=== PATIENT | female | born 1990 ===

== ENCOUNTER 2024-05-11 16:14 | Emergency (ER) | payer BC, SELFPAY ==
--- OUTSIDE RECORDS SUMMARY | 2024-05-11 16:17 | XMS_ITS ---
Author Organization [facility] Address [address] [place] [address] Care Team Providers Care Bed Placement Coordinator Name Role Phone Ángel Pham Primary Care Provider [phone] REASON FOR VISIT Est Primary Social History Sex Assigned At : Social History Observation Description Sex Assigned At Female Encounters Encounter Location Date Provider Diagnosis [address] [address] 02/10/2024 Ángel Pham Plan Of Treatment No Information Progress Notes * Peggy FRANKMarlysB:1990 ( 33 yo F)Acc No.[id number]:02/10/2024 UNLOCKED PROGRESS NOTE Progress Notes Patient: Trupti COPE Provider: GERALDO Shaikh, AGPCNP-BC :1990 A ge:33 Y S ex:Female Date:02/10/2024 Address:[address] [place], [place] [id number] Subjective: * Chief Complaints: * 1 . Est Primary. * Medical History: Objective: * Vitals: Assessment: Plan: * Treatment: * * Electronic signature of John Pham APRN, [phone] on 05/11/2024 at 04:16 PM TECHNICAL SALES SUPPORT SPECIALIST Sign off status: Pending * Provider: GERALDO Shaikh, AGPCNP-BC Date: 1 04/12/2023 Generated for Printing/Faxing/eTransmitting on: 0 05/11/2024 04:16 PM TECHNICAL SALES SUPPORT SPECIALIST
--- OUTSIDE RECORDS SUMMARY | 2024-05-11 16:17 | XMS_ITS | Clinical Summary ---
Author Organization [facility] Address [facility] [place] [address] Care Team Providers Care Field Cashier Name Role Phone Unavailable Primary Care Provider Unavailabl e Social History Tobacco Use Types Packs/Day Years Used Date Smoking Tobacco: Never Assessed Comments Unknown Sex and Gender Information Value Date Recorded Sex Assigned at Not on file Legal Sex Female 8:20 PM CDT Gender Identity Not on file Sexual Orientation Not on file Plan of Treatment Health Maintenance Due Date Last Done Comments Cervical Cancer Screening Pa p Smear (Age 30 to 64) Every 3 Years 1988 Annual Physical 08/31/1991 Hepatitis C 2006 DTaP, Tdap and Td Vaccines ( 1 - Tdap) 08/31/2007 Hepatitis B Vaccines (1 of 3 - 19+ 3-dose series) 08/31/2007 Cervical Cancer Screening Pa p with HPV Testing (Age 30 to 64) Every 5 Years 2018 Cervical Cancer Screening with HPV 2018 COVID-19 Vaccine (2023-2 5 season) 2023 Influenza Adult (#1) 2023 HPV Vaccines Aged Out No longer eligi ble based on patient's age to complete this topic Meningococcal B Vaccine Aged Out No l onger eligible based on patient's age to complete this topic Meningococcal Vaccine Aged Out No dillon lorie eligible based on patient's age to complete this topic Pneumococcal Vaccine: Pediat rics (0 to 5 Years) and At-Risk Patients (6 to 64 Years) Aged Out No longer eligible b ased on patient's age to complete this topic RSV Immunizations Under 20 Months Aged Out No longer eligible based on patient's age to complete this topic Advance Directives Documents on File Type Date 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
--- OUTSIDE RECORDS SUMMARY | 2024-05-11 16:17 | XMS_ITS ---
Author Organization [facility] Address [address] [place] [address] Care Team Providers Care Cane Splicer Name Role Phone Ángel Pham Primary Care Provider [phone] Asuncion Holm [phone] Allergies Allergen (clinical drug ingredient) Drug/Non Drug Allergy documented on EMR Reaction Allergy Type Onset Date Status Motrin hives Drug Allergy Active REASON FOR VISIT Walk-In Medications Medication SIG (Take, Route, Frequency, Duration) Notes Start Date End Date Status Buprenorphine HCl-Naloxone HCl 8-2 MG 1 film under the tongue and allow to dissolve Sublingual Once a day for 15 days 03/05/2024 Active Buprenorphine HCl-Naloxone HCl 12-3 MG 1 film under the tongue and allow to dissolve Sublingual Twice a day for 15 days 03/05/2024 Active Narcan 4 MG/0.1ML as directed Nasally FOR OPIOID OVERDOSE 09/20/2023 Active Docusate Sodium 100 MG 1 capsule as needed Orally Once a day for 30 days As needed for constipation 10/04/2023 Active Naloxone HCl 4 MG/0.1ML as directed Nasally FOR OPIOID OVERDOSE 11/21/2023 Active Social History Tobacco Use: Social History Observation Description Date Details (start date - stop date) Current Smoker NA - NA Sex Assigned At : Social History Observation Description Sex Assigned At Female Tobacco Control (Standard) Question Answer Notes Tobacco use: Current smoker Vital Signs Weight 208.2 lbs 03/05/2024 Height 65 in 03/05/2024 BMI 34.64 kg/m2 03/05/2024 Blood pressure systolic 126 mm Hg 03/05/20 24 Blood pressure diastolic 78 mm Hg 024 Heart Rate 126 /min 03/05/2024 Oximetry 98 % 03/05/2024 Temperature 98.6 degrees Fahrenheit 03/05/20 24 Respiratory Rate 16 /min 03/05/2024 Encounters Encounter Location Date Provider Diagnosis [facility] [place] [address] 03/05/2024 Asuncion Holm Opioid use disorder F11.99 Assessments Encounter Date Diagnosis (ICD Code) Assessment Notes Treatment Notes Treatment Clinical Notes Section Notes 03/05/2024 Opioid use disorder (ICD-10 - F11.99) 03/05/2024 Other Discussed risks of illicit substances and encouraged non-use. Discussed precipitated opioid withdrawal and how to avoid. Patient agrees to take medication as prescribed. Discussed medication side effects, adverse effects, risks, benefits, as well as interactions. Encouraged non-use of opioids and other illicit substances. Has naloxone. Discontinuing buprenorphine increases the risk of overdose upon return to illicit opioid use. Use of alcohol or benzodiazepines with buprenorphine increases the risk of overdose and . Education provided about safe storage of medications. Encouraged participation in recovery groups/counseling services. Contact office with questions or concerns. Plan Of Treatment Medication Medication Name Sig Start Date Stop Date Notes Buprenorphine HCl-Naloxone H Cl 8-2 MG 1 film under the tongue and allow to dissolve Sublingual Once a day for 15 days 03/05/2024 Buprenorphine HCl-Naloxone H Cl 12-3 MG 1 film under the tongue and allow to dissolve Sublingual Twice a day for 15 days 03/05/2024 Treatment Notes Assessment Notes Other Discussed risks of illicit substances and encouraged non-use. Discussed precipitated opioid withdrawal and how to avoid. Patient agrees to take medication as prescribed. Discussed medication side effects, adverse effects, risks, benefits, as well as interactions. Encouraged non-use of opioids and other illicit substances. Has naloxone. Discontinuing buprenorphine increases the risk of overdose upon return to illicit opioid use. Use of alcohol or benzodiazepines with buprenorphine increases the risk of overdose and . Education provided about safe storage of medications. Encouraged participation in recovery groups/counseling services. Contact office with questions or concerns. Next Appt Details Follow Up: 2 Weeks, Reason: MAR f/u Progress Notes * Helio FRANK:1990 ( 33 yo F)Acc No.[id number]:03/05/2024 Patient: Liliana Trupti ROMERO Provider: Logan Holm, MSN, EYEGLASS LENS GENERATOR, PMHNP-BC :1990 A ge:33 Y S ex:Female Date:03/05/2024 [address] [place] [address] Pcp:Ángel Pham Check In:01:06 PM ECONOMIC DEVELOPMENT COORDINATOR Subjective: * Chief Complaints: * W alk-In * HPI: P reventative Health and Wellness follow-up: Action Plans for Clinical Quality Measures: C ervical Cancer Screening: N ot addressed during this visit. See notes for details., H IV Screening: N ot addressed during this visit. See notes for details.. . I nterim History: Emergency room visit N o. W as hospitalized N o.? D epression Screening: PHQ-9 L ittle interest or pleasure in doing things N ot at all, F eeling down, depressed, or hopeless N ot at all, T rouble falling or staying asleep, or sleeping too much N ot at all, F eeling tired or having little energy N ot at all, P oor appetite or overeating N ot at all, F eeling bad about yourself or that you are a failure, or have let yourself or your family down N ot at all, T rouble concentrating on things, such as reading the newspaper or watching television N ot at all, M oving or speaking so slowly that other people could have noticed; or the opposite, being so fidgety or restless that you have been moving around a lot more than usual N ot at all, T houghts that you would be better off or of hurting yourself in some way N ot at all, T otal Score 0 . C SSRS Interpretation and Follow Up Plan: CSSRS Interpretation and Follow Up Plan. CSSRS Interpretation and Follow Up Plan C SSRS Screen documented using SF Y es, M oderate or High risk requires selection of a follow up plan C SSRS No/Low: intervention not needed at this time, R isk Disposition from SF L ow - No Follow Up Plan Required. S creening: [place] Suicide Severity Rating Scale (LF) D o you want to initiate with S creener form, 1 . Wish to be : Have you wished you were or wished you could go to sleep and not wake up? N o, 2 . Suicidal Thoughts: Have you actually had any thoughts of killing yourself? N o, 6 . Suicide Behaviour: Have you ever done anything,started to do anything, or prepared to end your life? N o, I nterpretation: L ow Risk. M AR follow-up: MAR walk-in, 4 week f/u Tolerating current dose of buprenorphine. Using meth couple days per week (smokes) Admits to recent fentanyl setback. Reports using once due to being around wrong crowd. Motivated to remain in treatment. Medication Monitoring and Risk Mitigation U p-to-date on ASAM recommended lab testing? N o, P rescribed a buprenorphine product? Y es, H as patient had a buprenorphine and metabolite lab ordered/collected? Y es (see notes for date of last metabolite testing), D ate of last buprenorphine and metabolite 0 11/21/2023, P rescription Drug Monitoring Program Review Y es. No concerns at this time., P cici to address any concerns identified: I n-office visits required at this time.. C ravings, Setbacks, Substance use, and Stressors C ravings since last visit: Y es. See notes., S etbacks since last visit? Y es. See notes., M isuse of substances since last visit: Y es, patient admits. See notes., S tressors N o, patient denies stressors at this time.. W ithdrawal and Intoxication Symptoms I ntoxication Symptoms: N o signs of intoxication are present during visit.,?Withdrawal Symptoms: N o withdrawal signs are present during visit.. M ental Health, Support System, and Social Determinants M ental Health Status S table., S upport Systems Include: P ersonal support system (see notes)., C ourt System Involvement? N o, H ousing Stability: S table and safe housing., C urrently employed? U nemployed., R eferrals needed: Rod khan recommended the following referrals, but the patient declined:, R eferrals declined for: R ecovery meetings/recovery support peer, Psychiatric care services. R ecommended Wellness and Prevention Follow-up R ecommended Wellness and Prevention reviewed: R ecommended Wellness and Prevention not reviewed during this visit (see notes):. O ther concerns: Other Concerns? N o., N arcan need Y es. Prescription will be sent today. Re-educated on appropriate use of Narcan.. * ROS: B asic ROS: Denies C hills. D enies S weats. D enies C onstipation. A dmits S ubstance Abuse. D enies S uicidal Thoughts. * Medical History: * Surgical History: r ight hand fasciotomy s/t compartment syndrome 2022 * Hospitalization/Major Diagno stic Procedure: c hildbirth x3 * Family History: F ather: alive. M other: alive. 1 brother(s) - healthy. 1 son(s) , 2 daughter(s) - healthy. . * Social History: P rimary Social History: L iving Arrangement L iving Arrangement: D ependent Living, L iving with: P arent(s), I s this a supportive environment? Y es. A lcohol Use A lcohol Use Frequency: N ever. I llicit Substance Usage I llicit Substance Usage: Y es. E mployment Status E mployment Status: U nemployed. T obacco Use: T obacco Control (Standard) T obacco use: C urrent smoker. M iscellaneous: M ethod of learning P referred method of learning: Penny berg. * Medications: T akingBuprenorphine HCl-Naloxone HCl 8-2 MG Film 1 film under the tongue and allow to dissolve Sublingual Once a day Buprenorphine HCl-Naloxone HCl 12-3 MG Film 1 film under the tongue and allow to dissolve Sublingual Twice a day Naloxone HCl 4 MG/0.1ML Liquid as directed Nasally FOR OPIOID OVERDOSEDocusate Sodium 100 MG Capsule 1 capsule as needed Orally Once a day As needed for constipationNarcan 4 MG/0.1ML Liquid as directed Nasally FOR OPIOID OVERDOSEMedication List reviewed and reconciled with the patientTaking Buprenorphine HCl-Naloxone HCl 8-2 MG Film 1 film under the tongue and allow to dissolve Sublingual Once a day Taking Buprenorphine HCl- Naloxone HCl 12-3 MG Film 1 film under the tongue and allow to dissolve Sublingual Twice a day Taking Naloxone HCl 4 MG/0.1ML Liquid as directed Nasally FOR OPIOID OVERDOSETaking Docusate Sodium 100 MG Capsule 1 capsule as needed Orally Once a day As needed for constipationTaking Narcan 4 MG/0.1ML Liquid as directed Nasally FOR OPIOID OVERDOSEMedication List reviewed and reconciled with the patient * Allergies: M otrin: christoph[Allergies Verified] Objective: * Vitals: I nitials: rt, Wt:208.2, Ht: 65, BMI:34.64, BP:126/78, HR:126, Oxygen sat %:98, Temp:98.6, RR:16, LMP: 02/2024, Pain scale:0. * Examination: A VIKASH Physical Assessment: Intoxication and Withdrawal signs I ntoxication signs N o signs of intoxication are present during examination.Withdrawal Signs N o withdrawal signs are present during examination.. G eneral Examination: GENERAL APPEARANCE: a lert, pleasant, in no acute distress.? PSYCH: a lert, oriented x4, speech clear, good eye contact.? Assessment: * Assessment: 1. O pioid use disorder - F11.99 (Primary) Plan: * Treatment: Value Reference Range T HC POS * C OC neg * M OP (OPI) POS * A MP POS * M ET POS * B AR neg * B ZO POS * M DMA POS * M TD neg * O XY neg * P CP neg * B UP POS 2.?Others? Notes:Discussed risks of illicit substances and encouraged non-use. Discussed precipitated opioid withdrawal and how to avoid. Patient agrees to take medication as prescribed. Discussedmedication side effects, adverse effects,risks, benefits, as well asinteractions. Encouraged non-use of opioids and other illicit substances. Hasnaloxone. Discontinuing buprenorphine increases the risk of overdose uponreturn to illicit opioid use. Use of alcohol or benzodiazepines withbuprenorphine increases the risk of overdose anddeath. Education providedabout safe storage of medications. Encouragedparticipation in recovery groups/counseling services. Contact office withquestions or concerns. ?? * Recommended Wellness and Pre vention Guidelines: * S hannah A malena L ast Done N ext Due A ction Taken N ONCOMPLIANT A lcohol use screening - 1 - N ONCOMPLIANT C ervical cancer screening - 1 - N ONCOMPLIANT H IV screening - 1 - N ONCOMPLIANT I nfluenza vaccine (high risk) - 1 - * Procedure Codes: 3 008F BODY MASS INDEX [id number] MEDICAL NUTRITION, INDIV, [id number] BEHAV CHNG SMOKING 3-10 MIN * Preventive Medicine: Counseling: C are goal follow-up plan: B AK management provided Y es, A madyson Normal BMI Follow-up L ifestyle education regarding diet. S MOKING: P atient counselled on the dangers of tobacco use and urged to quit. . . * Follow Up: 2 Weeks (Reason: MAY f/u) * * OMIC DEVELOPMENT COORDINATOR Sign off status: Completed true * Provider: Logan Holm, MSN, EYEGLASS LENS GENERATOR, PMHNP- Date: Generated for Printing/Faxing/eTransmitting on: 0 05/11/2024 04:16 PM ECONOMIC DEVELOPMENT COORDINATOR History and Physical Notes * HPI (History of Present Illness) Category Sub-Category Detail Notes Category Not es Interim History Was hospitalized No Emergency room visit No Depression Screening PHQ-9 Little inte rest or pleasure in doing things: Not at all Feeling down, depressed, or hopeless: No t at all Trouble falling or staying asleep, or sl eeping too much: Not at all Feeling tired or having little energy: N ot at all Poor appetite or overeating: Not at all Feeling bad about yourself o r that you are a failure, or have let yourself or your family down: Not at all Trouble concentrating on thi ngs, such as reading the newspaper or watching television: Not at all Moving or speaking so slowly that other people could have noticed; or the opposite, being so fidgety or restless that you have been moving around a lot more than usual: Not at all Thoughts that you would be b tyler off or of hurting yourself in some way: Not at all Total Score: 0 Screening [place] Suicide Sev erity Rating Scale (LF) Do you want to initiate with: Screener form 1. Wish to be : Have you wished you were or wished you could go to sleep and not wake up?: No 2. Suicidal Thoughts: Have you actually had any thoughts of killing yourself?: No 6. Suicide Behavior Question: Have you ever done anything,started to do anything, or prepared to end your life?: No Interpretation:: Low Risk Do Not Use CSSRS Interpretation and Follow Up Plan CSSRS Interpretation and Follow Up Plan CSSRS Screen documented using SF: Yes Moderate or High risk requir es selection of a follow up plan: CSSRS No/Low: intervention not needed at this time Risk Disposition from SF: Low - No Follo w Up Plan Required MAR follow-up Medication Monitorin g and Risk Mitigation Up-to-date on ASAM recommended lab testing?: No Prescribed a buprenorphine product?: Yes Has patient had a buprenorphine and metabolite lab ordered/collected?: Yes (see notes for date of last metabolite testing) Date of last buprenorphine and metabolite: 11/21/2023 Prescription Drug Monitoring Program Rev iew: Yes. No concerns at this time. Plan to address any concerns identified:: In-office visits required at this time. Cravings, Setbacks, Substanc e use, and Stressors Cravings since last visit:: Yes. See notes. Setbacks since last visit?: Yes. See not es. Misuse of substances since last visit:: Yes, patient admits. See notes. Stressors: No, patient denies stressors at this time. Withdrawal and Intoxication Symptoms Int oxication Symptoms:: No signs of intoxication are present during visit. Withdrawal Symptoms:: No withdrawal sign s are present during visit. Mental Health, Support Syste m, and Social Determinants Mental Health Status: Stable. Support Systems Include:: Personal suppo rt system (see notes). Court System Involvement?: No Housing Stability:: Stable and safe hous ing. Currently employed?: Unemployed. Referrals needed:: Provider recommended the following referrals, but the patient declined: Referrals declined for:: Recovery meetings/recovery support peer, Psychiatric care services Recommended Wellness and Pre vention Follow-up Recommended Wellness and Prevention reviewed:: Recommended Wellness and Prevention not reviewed during this visit (see notes): Other concerns: Other Concerns?: No. Narcan need: Yes. Prescripti on will be sent today. Re-educated on appropriate use of Narcan. Preventative Health and Wellness follow-up Action Plans for Clinical Quality Measures: Cervical Cancer Screening:: Not addressed during this visit. See notes for details. . HIV Screening:: Not addressed during thi s visit. See notes for details. Examination Category Sub-Category Detail Notes Category Not es General Examination GENERAL APPEARANCE: alert, p leasant, in no acute distress PSYCH: alert, oriented x4, speech clear, good eye contact ASAM Physical Assessment Intoxication an d Withdrawal signs Intoxication signs: No signs of intoxication are present during examination. Withdrawal Signs: No withdrawal signs ar e present during examination.
--- OUTSIDE RECORDS SUMMARY | 2024-05-11 16:17 | XMS_ITS | CONTINUITY OF CARE DOCUMENT ---
Author Name cedrick philip Address Unknown Organization [facility] Address [address] [place] [address] Phone [phone] Care Team Providers Care Stamp Presser Name Role Phone Pierce Perez MD Unavailable [phone] IRWIN PACHECO MD Unavailable INSURANCE PROVIDERS Payer name Policy type / Coverage type [employer] republic[employer] ID [facility] [id number] [facility] Blue Shield [id number]
--- OUTSIDE RECORDS SUMMARY | 2024-05-11 16:17 | XMS_ITS ---
Author Organization [facility] Address [address] [place] [address] Care Team Providers Care Six Pack Loader Operator Name Role Phone Ángel Pham Primary Care Provider [phone] Asuncion Holm Unavailable [phone] Allergies Allergen (clinical drug ingredient) Drug/Non Drug Allergy documented on EMR Reaction Allergy Type Onset Date Status Motrin hives Drug Allergy Active Results Component Value Reference Range Notes 12 Panel Urine Drug Screen Reviewed date:02/06/2024 01:50:49 PM Interpretation: Performing Lab: Notes/Report: THC POS JOI neg MOP (OPI) neg AMP POS MET POS BAR neg BZO neg MDMA neg MTD neg OXY neg PCP neg BUP POS REASON FOR VISIT Walk-In Medications Medication SIG (Take, Route, Frequency, Duration) Notes Start Date End Date Status Naloxone HCl 4 MG/0.1ML as directed Nasally FOR OPIOID OVERDOSE 11/21/2023 Active Docusate Sodium 100 MG 1 capsule as needed Orally Once a day for 30 days As needed for constipation 10/04/2023 Active Narcan 4 MG/0.1ML as directed Nasally FOR OPIOID OVERDOSE 09/20/2023 Active Buprenorphine HCl-Naloxone HCl 8-2 MG 1 film under the tongue and allow to dissolve Sublingual Once a day 02/06/2024 Active Buprenorphine HCl-Naloxone HCl 12-3 MG 1 film under the tongue and allow to dissolve Sublingual Twice a day 02/06/2024 Active Social History Tobacco Use: Social History Observation Description Date Details (start date - stop date) Current Smoker NA - NA Sex Assigned At : Social History Observation Description Sex Assigned At Female Tobacco Control (Standard) Question Answer Notes Tobacco use: Current smoker Vital Signs Weight 208.0 lbs 02/06/2024 Height 65 in 02/06/2024 BMI 34.61 kg/m2 02/06/2024 Blood pressure systolic 126 mm Hg 02/06/20 24 Blood pressure diastolic 78 mm Hg 024 Heart Rate 118 /min 02/06/2024 Oximetry 98 % 02/06/2024 Temperature 98.3 degrees Fahrenheit 02/06/20 24 Respiratory Rate 16 /min 02/06/2024 Encounters Encounter Location Date Provider Diagnosis [address] [place] [address] 02/06/2024 Asuncion Holm Opioid use disorder F11.99 ; Obesity (BMI 30-39.9) E66.9 and Nicotine dependence, unspecified, uncomplicated F17.200 Assessments Encounter Date Diagnosis (ICD Code) Assessment Notes Treatment Notes Treatment Clinical Notes Section Notes 02/06/2024 Opioid use disorder (ICD-10 - F11.99) 02/06/2024 Obesity (BMI 30-39.9) (ICD-10 - E66.9) 02/06/2024 Nicotine dependence, unspecified, uncomplicated (ICD-10 - F17.200) 02/06/2024 Other Discussed risks of illicit methamphetamine and encouraged non-use. Do not share medication. Discussed importance of regular follow-up. Patient agrees to take medication as prescribed. [...] allow to dissolve Sublingual Once a day 02/06/2024 Buprenorphine HCl-Naloxone H Cl 12-3 MG 1 film under the tongue and allow to dissolve Sublingual Twice a day 02/06/2024 Treatment Notes Assessment Notes Other Discussed risks of illicit methamphetamine and encouraged non-use. Do not share medication. Discussed importance of regular follow-up. Patient agrees to take medication as prescribed. [...] or concerns. Next Appt Details Follow Up: 4 Weeks, Reason: MAR f/u Progress Notes * Jessiac FRANKB:1990 ( 33 yo F)Acc No.[id number]:02/06/2024 Patient: Trupti COPE Provider: Logan Holm, MSN, TRIMMER HELPER, PMHNP-BC :1990 A ge:33 Y S ex:Female Date:02/06/2024 Address:[address] [place] [address] Pcp:Ángel Pham Check In:01:12 PM FAMILY PHYSICIAN Subjective: * Chief Complaints: * W alk-In * HPI: I nterim History: Emergency room visit N o. W as hospitalized N o.? D epression Screening: PHQ-9 L ittle interest or pleasure in doing things N ot at all, T rouble falling or staying asleep, or sleeping too much N ot at all, P oor appetite or overeating N ot at all, T rouble concentrating [...] yourself in some way N ot at all. M AR follow-up: MAY walk-in, overdue for follow-up Patient reports she has not been able to come to clinic, has received some Suboxone from family member. Feels current dose is effective when she is able to take prescribed amount. Denies opioid setbacks. Uses meth few days per week. Reduced cravings for meth when takes prescribed dose of Subooxne. Medication Monitoring and Risk Mitigation U p-to-date on ASAM recommended lab testing? N o, P rescribed a buprenorphine product? Y es, H as patient had a buprenorphine and metabolite lab ordered/collected? Y es (see notes for date of last metabolite testing), D ate of last buprenorphine and metabolite 0 10/31/2023, P rescription Drug Monitoring Program Review Y es. No concerns at this time., P cici to address any concerns identified: I n-office visits required at this time.. C ravings, Setbacks, Substance use, and Stressors C ravings since last visit: N o. Patient denies cravings since last visit., Setbacks since last visit? N o, patient denies setbacks since last visit., M isuse of substances since last visit: Y es, patient admits. See notes., S tressors N o, patient denies stressors at this time.. W ithdrawal and Intoxication Symptoms I ntoxication Symptoms:?No signs of intoxication are present during visit., W ithdrawal Symptoms: N o withdrawal signs are present [...] care services. R ecommended Wellness and Prevention Follow-up?Recommended Wellness and Prevention reviewed: R ecommended Wellness and Prevention not reviewed during this visit (see notes):. O ther concerns: O ther Concerns? N o., N arcan need Y es. Prescription will be sent today. Re-educated on appropriate use of Narcan.. C SSRS Interpretation and Follow Up Plan: CSSRS Interpretation and Follow Up Plan. CSSRS Interpretation and Follow Up Plan C SSRS Screen documented using SF Y es, M oderate or High risk requires selection of a follow up plan C SSRS No/Low: intervention not needed at this time. S creening: [place] Suicide Severity Rating Scale (LF) D o [...] N o, I nterpretation: L ow Risk. * ROS: B asic ROS: Denies C hills. D enies S weats. D enies C onstipation. A dmits S ubstance Abuse. D enies S uicidal Thoughts. * Medical History: * Surgical History: r ight hand fasciotomy s/t compartment syndrome 2022 * Hospitalization/Major Diagno stic Procedure: c leoiradam x3 * Family History: F ather: alive. M other: alive. 1 brother(s) - healthy. 1 son(s) , 2 daughter(s) - healthy. . * Social History: P rimary Social History: L iving Arrangement L iving Arrangement: D ependent Living, L iving with: Rod ward(s), I s this a supportive environment? Y es. A lcohol Use A lcohol Use Frequency: N ever. T obacco Use: T obacco Control (Standard) T obacco use: C urrent smoker. M iscellaneous: M ethod of learning P referred method of learning: R morena. * Medications: T akingBuprenorphine HCl-Naloxone HCl 8-2 [...] Verified] Objective: * Vitals: I nitials: rt, Wt:208.0, Ht: 65, BMI:34.61, BP:126/78, HR:118, Oxygen sat %:98, Temp:98.3, RR:16, LMP: 02/2024, Pain scale:0. * Examination: A [facility] Physical Assessment: Intoxication and Withdrawal signs I ntoxication signs N o signs of intoxication are present during examination.Withdrawal Signs N o withdrawal signs are present during examination.. G eneral Examination: GENERAL APPEARANCE: a lert, pleasant, in no acute distress.? PSYCH: a lert, oriented x4, speech clear, good eye contact.? Assessment: * Assessment: 1. O besity (BMI 30-39.9) - E66.9 2 . O pioid use disorder - F11.99 (Primary) 3 . N icotine dependence, unspecified, uncomplicated - F17.200 ? Plan: * Treatment: Value Reference Range T HC POS * C OC neg * M OP (OPI) neg * A MP POS * M ET POS * B AR neg * B ZO neg * M DMA neg * M TD neg * O XY neg * P CP neg * B UP POS 2.?Others? Notes:Discussed risks of illicit methamphetamine and encouraged non-use. Do not share medication. Discussed importance of regular follow-up. Patient agrees to take medication as prescribed. [...] Contact office withquestions or concerns. ?? * Procedure Codes: 9 9000 SPECIMEN [id number] BODY MASS INDEX [id number] MEDICAL NUTRITION, INDIV, [id number] BEHAV CHNG SMOKING 3-10 MIN * Preventive Medicine: Counseling: C are goal follow-up plan: B NH management provided Y es, A madyson Normal BMI Follow-up L ifestyle education regarding diet. S MOKING: P atient counselled on the dangers of tobacco use and urged to quit. . . * Follow Up: 4 Weeks (Reason: MAY f/u) * * LY PHYSICIAN Sign off status: Completed true * Provider: Logan Holm, MSN, TRIMMER HELPER, PMHNP-BC Date: 1 04/08/2023 Generated for [employer]ing[employer]/eTransmitting on: 0 05/11/2024 04:16 PM FAMILY PHYSICIAN History and Physical Notes * HPI (History of Present Illness) Category Sub-Category Detail Notes Category Not es Interim History Was hospitalized No Emergency room visit No Depression Screening PHQ-9 Little inte rest or pleasure in doing things: Not at all Trouble falling or staying asleep, or sl eeping too much: Not at all Poor appetite or overeating: Not at all Trouble concentrating on thi [...] yourself in some way: Not at all Screening [place] Suicide Sev erity Rating Scale (LF) Do [...] No/Low: intervention not needed at this time MAR follow-up Medication Monitorin g and Risk Mitigation Up-to-date on ASAM recommended lab testing?: No Prescribed a buprenorphine product?: Yes Has patient had a buprenorphine and metabolite lab ordered/collected?: Yes (see notes for date of last metabolite testing) Date of last buprenorphine and metabolite: 10/31/2023 Prescription Drug Monitoring Program Rev iew: Yes. No concerns at this time. Plan to address any concerns identified:: In-office visits required at this time. Cravings, Setbacks, Substanc e use, and Stressors Cravings since last visit:: No. Patient denies cravings since last visit. Setbacks since last visit?: No, patient denies setbacks since last visit. Misuse of substances since last visit:: Yes, [...] today. Re-educated on appropriate use of Narcan. Examination Category Sub-Category Detail Notes Category Not es General Examination GENERAL APPEARANCE: alert, p leasant, in no acute distress PSYCH: alert, oriented x4, speech clear, good eye contact ASAM Physical Assessment Intoxication an d Withdrawal signs Intoxication signs: No signs of intoxication are present during examination. Withdrawal Signs: No withdrawal signs ar e present during examination.
--- OUTSIDE RECORDS SUMMARY | 2024-05-11 16:17 | XMS_ITS | Patient Health Record ---
Author Organization [facility] Address [address] [place] [address] Care Team Providers Care Emergency Response Officer Name Role Phone Ángel Pham Primary Care Provider Leonora Rondon Unavailable [phone] Asuncion Holm Unavailable [phone] Allergies Allergen (clinical drug ingredient) Drug/Non Drug [...] neg OXY neg PCP neg BUP POS Comprehensive Drug Analysis, Urine Reviewed date:11/29/2023 09:58:37 AM Interpretation: Performing Lab:[facility], [address] [place] [address], Phone - [phone], Director - Triny Notes/Report: ToxAssure, ToxAssure FLEX or MAT drug testing: Technical Component - Data Analysis performed at [facility], [address] [place] [address], [phone] . Liner Installer Sofia Khan MD Summary Report (Summary) FINAL COMPREHENSIVE DRUG ANALYSIS,UR Test Result Flag Units Drug Present Methamphetamine >2315 ng/mg creat Amphetamine >4630 ng/mg creat Sources of methamphetamine include illicit sources, as a scheduled prescription medication, as a metabolite of some prescription drugs, or use of an l-methamphetamine inhaler. Amphetamine is an expected metabolite of methamphetamine. Amphetamine is also available as a schedule II prescription drug. Alprazolam 43 ng/mg creat Alpha-hydroxyalprazolam 132 ng/mg creat Source of alprazolam is a scheduled prescription medication. Alpha-hydroxyalprazolam is an expected metabolite of alprazolam. Carboxy-THC 15 ng/mg creat Carboxy-THC is a metabolite of tetrahydrocannabinol (THC). Source of THC is most commonly herbal marijuana or marijuana-based products, but THC is also present in a scheduled prescription medication. Trace amounts of THC can be present in hemp and cannabidiol (CBD) products. This test is not intended to distinguish between nqnly-4-yqzwjozxvvtxvouczkas, the predominant form of THC in most herbal or marijuana-based products, and oczfk-6-dlvqbvyxvxzcxzwodkvx. Buprenorphine >463 ng/mg creat Norbuprenorphine >463 ng/mg creat Source of buprenorphine is a scheduled prescription medication. Norbuprenorphine is an expected metabolite of buprenorphine. Ephedrine/Pseudoephedrine PRESENT Phenylpropanolamine PRESENT Source of ephedrine/pseudoephedrine is most commonly pseudoephedrine in dcpm-ndm-qpbhfgb or prescription cold and allergy medications. Phenylpropanolamine is an expected metabolite of ephedrine/pseudoephedrine. Test Result Flag Units Ref Range Creatinine 216 mg/dL >=20 For clinical consultation, please call . PDF . 12 Panel Urine Drug Screen Reviewed date:10/04/2023 03:02:23 PM Interpretation: Performing Lab: Notes/Report: THC neg JOI neg MOP (OPI) neg AMP POS MET POS BAR neg BZO POS MDMA POS MTD neg OXY neg PCP neg BUP POS PDF Report Reviewed date:11/29/2023 09:58:37 AM Interpretation: Performing Lab:[facility], [address] [place] [address], Phone - [phone], Director - Triny Notes/Report: ToxAssure, ToxAssure FLEX or MAT drug testing: Technical Component - Data Analysis performed at [facility], [address] [place] [address], [phone] . Liner Installer Sofia Khan MD PDF Report1 LS 12 Panel Urine Drug Screen Reviewed date:11/21/2023 03:04:53 PM Interpretation: Performing Lab: Notes/Report: THC POS JOI neg MOP (OPI) neg AMP POS MET POS BAR neg BZO POS MDMA POS MTD neg OXY neg PCP neg BUP POS 12 Panel Urine Drug Screen Reviewed date:10/14/2023 01:13:24 PM Interpretation: Performing Lab: Notes/Report: THC POS JOI neg MOP (OPI) neg AMP POS MET POS BAR neg BZO neg MDMA POS MTD neg OXY neg PCP neg BUP POS 12 Panel Urine Drug Screen Reviewed date:03/05/2024 02:36:24 PM Interpretation: Performing Lab: Notes/Report: THC POS JOI neg MOP (OPI) POS AMP POS MET POS BAR neg BZO POS MDMA POS MTD neg OXY neg PCP neg BUP POS Medication Assisted Treatmen t (MAT) Buprenorphine, Norbuprenorphine, and Naloxone MS Confirmation, Urine Reviewed date:11/08/2023 08:14:32 AM Interpretation: Performing Lab:[facility], [address] [facility], Phone - [phone], Director - Triny Notes/Report: Creatinine 96 Testing Threshold: buprenorphine, 1.0 ng/mL norbuprenorphine, 5.0 ng/mL naloxone, 10 ng/mL This test was developed and its performance characteristics determined by [facility]. It has not been cleared or approved by the Food and Drug Administration. REFERENCE RANGE: Ref Range>=20 BUPRENORPHINE ++POSITIVE++ Buprenorphine 285 Norbuprenorphine 722 N/B Ratio 2.53 >=0.3 OPIATE ANTAGONIST ++POSITIVE++ Naloxone 1039 12 Panel Urine Drug Screen Reviewed date:10/31/2023 02:10:35 PM Interpretation: Performing Lab: Notes/Report: THC neg JOI neg MOP (OPI) neg AMP POS MET POS BAR neg BZO neg MDMA neg MTD neg OXY neg PCP neg BUP POS Test, Urine Reviewed date:09/20/2023 01:40:08 PM Interpretation:Negative Performing Lab: Notes/Report: Negative Test, Urine neg Negative - Negative 12 Panel Urine Drug Screen Reviewed date:09/20/2023 01:36:46 PM Interpretation: Performing Lab: Notes/Report: THC neg JOI neg MOP (OPI) neg AMP POS MET POS BAR neg BZO neg MDMA POS MTD neg OXY neg PCP neg BUP POS 12 Panel Urine Drug Screen Reviewed date:12/14/2023 11:05:27 AM Interpretation: Performing Lab: Notes/Report: THC neg JOI neg MOP (OPI) neg AMP POS MET POS BAR neg BZO POS MDMA POS MTD neg OXY neg PCP POS Reason For Referral No Information Medications Medication SIG (Take, Route, Frequency, Duration) [...] History Observation Description Sex Assigned At Female PRAPARE Question Answer Notes Date Completed/Updated: 10/31/2023 What is your current housing situation? I do not have housing (staying with others, in a hotel, in a [place], living outside on the street, on a beach, or in a park) Are you worried about losing your housing? Yes What is the highest level of school that you have finished? Less than a high school degree What is your current work situation? Unemployed and seeking work In the past year, have you o r any family members you live with been unable to get any of the following when it was really needed? Check all that apply I do not have problems meeting my needs Has lack of transportation k ept you from medical appointments, meetings, work or from getting things needed for daily living? No How often do you see or talk to people that you care about and feel close to? (For example: talking to friends on the phone, visiting friends or family, going to orthodoxy or club meetings) More than 5 times a week How stressed are you? Stress is when someone feels tense, nervous, anxious, or can\t sleep at night because their mind is troubled Somewhat In the past year have you sp ent more than 2 nights in a row in a chcf, halfway, retirement center, or juvenile correctional facility? Yes What was your release date? 09/07/2023 Are you a refugee? No What country are you from? [place] Do you feel physically and e motionally safe where you currently live? No In the past year, have you b een afraid of your partner or ex-partner? No PRAPARE Score: 10 Tobacco Control (Standard) Question Answer Notes Tobacco use: Current smoker Problems Problem Type SNOMED Code ICD Code Onset Dates Problem Status W/U Status Risk Notes Problem Tobacco user (361614394) Nicotine dependence, unspecified, uncomplicated (F17.200) Active confirmed Problem Obesity (439245784) Obesity (BMI 30-39.9) (E66.9) Active confirmed Problem Mental disorder caused by drug (812536085) Opioid use disorder (F11.99) Active confirmed Vital Signs Heart Rate 126 /min 03/05/2024 Temperature 98.6 degrees Fahrenheit 03/05/2024 Respiratory Rate 16 /min 03/05/2024 Oximetry 98 % 03/05/2024 Blood pressure diastolic 78 mm Hg 03/05/2024 Height 65 in 03/05/2024 Blood pressure systolic 126 mm Hg 03/05/2024 Weight 208.2 lbs 03/05/2024 BMI 34.64 kg/m2 03/05/2024 Encounters Encounter Location Date Provider Diagnosis [address] [address] 09/20/2023 Asuncion Holm Opioid use disorder F11.99 ; Exposure to potential infection Z20.9 ; Obesity (BMI 30-39.9) E66.9 ; Nutritional counseling Z71.3 and Nicotine dependence, unspecified, uncomplicated F17.[address] [address] 09/20/2023 [facility] [address] 10/04/2023 Asuncion Holm Opioid use disorder F11.99 ; Nicotine dependence, unspecified, uncomplicated F17.200 ; Obesity (BMI 30-39.9) E66.9 and Nutritional counseling Z71.[address] [address] 10/04/2023 Leonora Sanbravoann [address] [address] 10/14/2023 Ángel Pham Opioid use disorder F11.99 ; Obesity (BMI 30-39.9) E66.9 ; Nutritional counseling Z71.3 and Nicotine dependence, unspecified, uncomplicated F17.[address] [address] 10[facility]14[facility]20[facility] [address] [address] 10/31/2023 Asuncion Szlufik Opioid use disorder F11.99 ; Obesity (BMI 30-39.9) E66.9 ; Nicotine dependence, unspecified, uncomplicated F17.200 and Nutritional counseling Z71.[address] [address] 10/31/2023 Leonora Nuñezann [address] [address] 11/21/2023 Asuncion Fiorfik Opioid use disorder F11.99 ; Obesity (BMI 30-39.9) E66.9 and Nicotine dependence, unspecified, uncomplicated F17.[address] [address] 12/14/2023 Asuncion Szlufik Opioid use disorder F11.99 ; Obesity (BMI 30-39.9) E66.9 and Nicotine dependence, unspecified, uncomplicated F17.[address] [address] 02/06/2024 Asuncion Anooplufik Opioid use disorder F11.99 ; Obesity (BMI 30-39.9) E66.9 and Nicotine dependence, unspecified, uncomplicated F17.[address] [address] 03/05/2024 Asuncion Anooplufik Opioid use disorder F11.99 Assessments Encounter Date Diagnosis (ICD Code) Assessment Notes Treatment Notes Treatment Clinical Notes Section Notes 09/20/2023 Opioid use disorder (ICD-10 - F11.99) 09/20/2023 Exposure to potential infection (ICD-10 - Z20.9) 10/04/2023 Nicotine dependence, unspecified, uncomplicated (ICD-10 - F17.200) 10/04/2023 Opioid use disorder (ICD-10 - F11.99) 10/14/2023 Obesity (BMI 30-39.9) (ICD-10 - E66.9) 10/14/2023 Opioid use disorder (ICD-10 - F11.99) 10/31/2023 Obesity (BMI 30-39.9) (ICD-10 - E66.9) 10/31/2023 Opioid use disorder (ICD-10 - F11.99) 11/21/2023 Obesity (BMI 30-39.9) (ICD-10 - E66.9) 11/21/2023 Opioid use disorder (ICD-10 - F11.99) 12/14/2023 Obesity (BMI 30-39.9) (ICD-10 - E66.9) 12/14/2023 Opioid use disorder (ICD-10 - F11.99) 02/06/2024 Obesity (BMI 30-39.9) (ICD-10 - E66.9) 02/06/2024 Opioid use disorder (ICD-10 - F11.99) 03/05/2024 Opioid use disorder (ICD-10 - F11.99) 02/06/2024 Nicotine dependence, unspecified, uncomplicated (ICD-10 - F17.200) 12/14/2023 Nicotine dependence, unspecified, uncomplicated (ICD-10 - F17.200) 11/21/2023 Nicotine dependence, unspecified, uncomplicated (ICD-10 - F17.200) 10/31/2023 Nicotine dependence, unspecified, uncomplicated (ICD-10 - F17.200) 10/14/2023 Nutritional counseling (ICD-10 - Z71.3) 09/20/2023 Obesity (BMI 30-39.9) (ICD-10 - E66.9) 10/04/2023 Obesity (BMI 30-39.9) (ICD-10 - E66.9) 10/04/2023 Nutritional counseling (ICD-10 - Z71.3) 09/20/2023 Nutritional counseling (ICD-10 - Z71.3) 10/14/2023 Nicotine dependence, unspecified, uncomplicated (ICD-10 - F17.200) 10/31/2023 Nutritional counseling (ICD-10 - Z71.3) 09/20/2023 Nicotine dependence, unspecified, uncomplicated (ICD-10 - F17.200) 09/20/2023 Other Client agrees t o take medication as prescribed. Discussed medication side effects, adverse effects, risks, benefits, as well as interactions. Encouraged non-use of opioids and other illicit substances. Has naloxone. Understand that discontinuing buprenorphine increases the risk of overdose upon return to illicit opioid use. Know that that use of alcohol or benzodiazepines with buprenorphine increases the risk of overdose and . Education provided about safe storage of medications. Encourage participation in recovery groups/counseling services. Contact office with questions or concerns. 09/20/2023 Other Provided case management services to address social determinants of health needs and reduce barriers to health care services. 10/04/2023 Other Client agrees to take medication as prescribed. Discussed medication side effects, adverse effects, risks, benefits, as well as interactions. Encouraged non-use of opioids and other illicit substances. Has naloxone. Understand that discontinuing buprenorphine increases the risk of overdose upon return to illicit opioid use. Know that that use of alcohol or benzodiazepines with buprenorphine increases the risk of overdose and . Education provided about safe storage of medications. Encourage participation in recovery groups/counseling services. Patient understands that all treating providers/physician s should be informed of buprenorphine use as part of a Medication Assisted Recovery program. Contact office with questions or concerns. 10/04/2023 Other Provided case management services to address social determinants of health needs and reduce barriers to health care services. 10/14/2023 Other Potential side effects of buprenorphine discussed, as well as taking buprenorphine as prescribed. Dangers of using other controlled substances (prescribed or illegal/including benzodiazepines) with buprenorphine discussed. Patient understands taking other narcotics with buprenorphine could lead to respiratory distress and even . Patient understands that ALL treating providers/physician s should be informed of buprenorphine use as part of a Medication Assisted Treatment program 10/14/2023 Other Provided case management services to address social determinants of health needs and reduce barriers to health care services. 10/31/2023 Other Client agrees to take medication as prescribed. Discussed medication side effects, adverse effects, risks, benefits, as well as interactions. Encouraged non-use of opioids and other illicit substances. Has naloxone. Understand that discontinuing buprenorphine increases the risk of overdose upon return to illicit opioid use. Know that that use of alcohol or benzodiazepines with buprenorphine increases the risk of overdose and . Education provided about safe storage of medications. Encourage participation in recovery groups/counseling services. Patient understands that all treating providers/physician s should be informed of buprenorphine use as part of a Medication Assisted Recovery program. Contact office with questions or concerns. 10/31/2023 Other Provided case management services to address social determinants of health needs and reduce barriers to health care services. 11/21/2023 Other Client agrees to take medication as prescribed. Discussed medication side effects, adverse effects, risks, benefits, as well as interactions. Encouraged non-use of opioids and other illicit substances. Has naloxone. Understand that discontinuing buprenorphine increases the risk of overdose upon return to illicit opioid use. Know that that use of alcohol or benzodiazepines with buprenorphine increases the risk of overdose and . Education provided about safe storage of medications. Encourage participation in recovery groups/counseling services. Patient understands that all treating providers should be informed of buprenorphine use as part of a Medication Assisted Recovery program. Contact office with questions or concerns. 12/14/2023 Other Client agrees to take medication as prescribed. Discussed medication side effects, adverse effects, risks, benefits, as well as interactions. Encouraged non-use of opioids and other illicit substances. Has naloxone. Understand that discontinuing buprenorphine increases the risk of overdose upon return to illicit opioid use. Use of alcohol or benzodiazepines with buprenorphine increases the risk of overdose and . Encourage participation in recovery groups/counseling services. Education provided about safe storage of medications. Contact office with questions or concerns. 02/06/2024 Other Discussed risks of illicit methamphetamine [...] services. Contact office with questions or concerns. 03/05/2024 Other Discussed risks of illicit substances [...] with questions or concerns. Plan Of Treatment No Information Insurance Providers Payer Name Payer Address Payer Phone Subscriber Number Group Number Insured Name Patient Relationship to Insured Coverage Start Date Coverage End Date [address] [place] [address] [id number] 1 Trupti Frank Self - patient is the insured 2 Medical (General) History Medical History History ICD Code OUD Surgical History Surgery Date(Month/Year) right hand fasciotomy s/t compartment sy ndrome 2022 Hospitalization History Reason Date(Month/Year) childbirth x3
[2024-05-11 16:51] VITALS: BP 131/78; PULSE 103; RESP 20; TEMP 36.9; O2SAT 98
--- NOTE | 2024-05-11 19:26 | ED_ITS ---
HPI - Female Genitourinary General Chief complaint: [employer] Stated complaint: STI check Time Seen by Provider: 05/11/24 19:00 Focused HPI: Patient is a 33-year-old female presents to the ER with concerns of vaginal sores and discharge. She reports she has this happened approximately 1 month ago but it cleared up. The patient reports approximately 1 week ago she started experiencing symptoms again, including intermittent brown/creamy-colored vaginal discharge and painful lesions on her vulva. She is concerned for STDs, although she denies any known positive contacts. Patient denies any recent fevers, back pain, abdominal pain. She denies any medical history related to this ER visit. GENERAL: Well-appearing, well-nourished, and in no acute distress. HEAD: Normocephalic, atraumatic. CHEST: Clear to auscultation. ?No respiratory distress. HEART: Regular rate and rhythm.? NEURO: ?Alert and oriented x3. : Pt has two large labial lesions. Lesions are not open. The two visible lesions appear to be vaginal warts and not herpetic lesions. Patient screened in triage and initial orders placed.? ?Additional care and d isposition to be based upon?diagnostic testing and treatment. Related Data Allergies Allergy/AdvReac Type Severity Reaction Status Date / Time ibuprofen Allergy Mild Hives Verified 05/11/24 16:54 Review of Systems Review of Systems: All systems reviewed & are unremarkable except as noted in HPI and below Exam Narrative: GENERAL: Well appearing, well-nourished, non-toxic, in no acute distress. HEAD: Normocephalic, atraumatic. NECK: Supple. No adenopathy, no masses. RESPIRATORY: Airway patent, respirations nonlabored. Clear to auscultation bilaterally, no rales, rhonchi, wheezing. CARDIOVASCULAR: Regular rate and rhythm without murmurs, rubs, or gallops. Peripheral pulses 2+ and equal bilaterally. ABDOMINAL: Soft, nontender, nondistended, no hepatosplenomegaly. Normoactive BS. : Pt has two large labial lesions. Lesions are not open. The two visible lesions appear to be vaginal warts and not herpetic lesions. MUSCULOSKELETAL: Moves all extremities. Strength/ROM intact without gross deformities. SKIN: Warm, dry, normal color. No rashes. NEURO: A&O X3. Speech clear. Cranial nerves II-XII grossly intact. Steady gait. No ataxic movements. PSYCHIATRIC: Appropriate mood and affect. Normal interaction. Course Vital Signs Vital signs: Vital Signs Temperature 36.9 C 05/11/24 16:51 Pulse Rate 103 H 05/11/24 16:51 Respiratory Rate 20 05/11/24 16:51 Blood Pressure 131/78 05/11/24 16:51 Pulse Oximetry 98 05/11/24 16:51 Oxygen Delivery Room Air 05/11/24 16:51 Temperature 36.9 C 05/11/24 16:51 Pulse Rate 103 H 05/11/24 16:51 Respiratory Rate 20 05/11/24 16:51 Blood Pressure 131/78 05/11/24 16:51 Pulse Oximetry 98 05/11/24 16:51 Oxygen Delivery Room Air 05/11/24 16:51 MDM - Female Genitourinary MDM Narrative Medical decision making narrative: Patient is a 33-year-old female presents to the ER with concerns of vaginal sores and discharge. She reports she has this happened approximately 1 month ago but it cleared up. The patient reports approximately 1 week ago she started experiencing symptoms again, including intermittent brown/creamy-colored vaginal discharge and painful lesions on her vulva. She is concerned for STDs, although she denies any known positive contacts. Patient denies any recent feve rs, back pain, abdominal pain. She denies any medical history related to this ER visit. Labs Ordered: UA, STD screen (urine), herpes swab, HCG urine Imaging Ordered: None necessary Medications Ordered: Ceftriaxone IM, EMLA cream, Flagyl p.o., Doxycycline p.o. Results: Pt's genital lesions were swabbed for herpes. She will be treated for chlamydia, gonorrhea, and trichomoniasis, along with herpes. Diagnosis: sexually-transmitted disease, concern for herpes genitalis versus genital warts, UTI Consults: OBGYN (outpatient) Patient Education/Shared MDM: Results of examination shared with patient. She was strongly advised to follow-up with OBGYN as soon as possible. Patient strongly advised to maintain hydration status upon discharge and complete all of her antibiotics and antivirals. She will be discharged home with prescription for Doxycycline PO, Flagyl PO, Acyclovir PO, along with EMLA cream for discomfort. She should take Tylenol at home for pain control. Strict return precautions provided. Patient verbalized understanding is in agreement with plan. Vital signs stable at time of discharge. All questions answered. Differential Diagnosis Differential diagnosis: Likely urinary tract infection, trichomoniasis, vaginitis, cystitis and other (genital warts, HPV infections, gonorrhea/chlamydia) Lab Data Labs: Lab Results 05/11/24 05/11/24 Range/Units 19:35 19:45 Urine Color Dark yellow (Yellow) Urine Appearance Cloudy H (Clear) Urine pH 5.5 (5.0-9.0) Ur Specific Paxton 1.024 (1.001-1.035) Urine Protein Negative (Negative) mg/dL Urine Glucose (UA) Negative (Negative) mg/dL Urine Ketones Negative (Negative) mg/dL Ur Blood (Man) Trace (Negative) Urine Nitrate Positive H (Negative) Urine Bilirubin Negative (Negative) Urine Urobilinogen 0.2 (<2.0) mg/dL Add Ur Microanalysis Reviewed Leukocyte Esterase Rfl 2+ H (Negative) PRIMITIVO/UL Urine RBC 6-10 H (0-2) /hpf Urine WBC 21-50 H (0-3) /hpf Ur Squamous Epith Cells Moderate (Few) /hpf Urine Bacteria 4+ H /hpf Urine Casts 0-2 C. trachomatis (PCR) Pending Herpes Virus Source Pending Herpes Simplex Culture Pending N. gonorrhoeae (PCR) Pending T. vaginalis (PCR) Pending Discharge Plan Discharge Clinical Impression: Sexually transmitted disease, Herpes genitalis in women, Genital warts Patient Disposition: Home, Self-Care Condition: Stable Instructions: Antibiotic Form, Genital Herpes Infection (ED), Sexually Transmitted Diseases (ED), Genital Warts (ED) Additional Instructions: Please return to the ER with any worsening symptoms. Follow-up with OBGYN as soon as possible. Take all medications as prescribed. You may take Tylenol for pain control. Patient Language: Chinese Prescriptions: New doxycycline monohydrate 100 mg capsule 100 mg PO BID Qty: 14 0RF acyclovir 400 mg tablet 400 mg PO TID Qty: 30 0RF metronidazole 500 mg tablet 500 mg PO Q12H Qty: 14 0RF lidocaine 5 % cream 1 applic topical QID PRN (Reason: pain) Qty: 30 0RF Follow-up/Referrals: [facility] [employer] [Provider Group] Lakhwinder Franz MD [Physician] - (OBGYN) Nestor Ramos MD [Physician] - (OBGYN) Sina Crandall MD [Primary Care Provider] - Time of Disposition: 20:01
[2024-05-11] MEDS: metroNIDAZOLE 500 MG TABLET PO (19:48)
[2024-05-11] MEDS: cefTRIAXone 1 GM VIAL 0.5 GM IM (19:48)
[2024-05-11] MEDS: DOXYCYCLINE HYCLATE 100 MG TABLET PO (19:48)
[2024-05-11] MEDS: LIDOCAINE/PRILOCAINE CREAM 2.5-2.5% TUBE 1 EACH TOPICAL (19:48)
[2024-05-11 20:00] LABS: Add Urine Microscopic? YES; Appearance Urine Cloudy (Clear); Bacteria Urine 4+ /hpf; Bilirubin Urine Negative (Negative); Blood Urine Trace (Negative); Color Urine Dark Yellow (Yellow); Glucose Urine UA Negative (Negative); Ketones Urine Negative (Negative); Leukocyte Esterase Ur 2+ LEU/UL (Negative); Need Manual Microscopic Reviewed; Nitrate Urine Positive (Negative); Non Pathogenic Casts 0-2; Protein Urine Negative (Negative); Specific Grav Ur 1.024 (1.001-1.035); Squamous Epithelial Cell Urine Moderate /hpf (Few); Urobilinogen Urine 0.2 mg/dL (<2.0); WBC Urine 21-50 /hpf (0-3); pH Urine 5.5 (5.0-9.0)
[2024-05-11 20:13] LABS: BEDSIDEPREGUCG Negative (Negative)
--- OUTSIDE RECORDS SUMMARY | 2024-05-11 20:16 | XMS_ITS | Clinical Summary ---
Author Organization [facility] Address [address] [place] [address] Care Team Providers Care Channel Development Director Name Role Phone No, Physician Primary Care Provider [phone] Allergies Active Allergy Reactions Criticality Noted Date Comments Ibuprofen Hives Medium Immunizations Immunization Administration Dates Next Due Influenza, Quadrivalent, Spl it, Preservative Free, Intramuscular 03/29/2016 Social History Tobacco Use Types Packs/Day Years Used Date Smoking Tobacco: Every Day Smokeless Tobacco: Never Personal Safety Answer Date Recorded Have you ever been in or are you currently in a harmful physical or emotional relationship or is someone making you feel afraid or unsafe? 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 Gender Identity Not on file Sexual Orientation Not on file Obstetrics History Last Filed Vital Signs Vital Sign Reading Time Taken Comments Blood Pressure 119/76 11/09/2023 2:58 PM CDT Pulse 101 11/09/2023 2:58 PM CDT Temperature 36.7 C (98 F) 11/09/2023 2:58 PM CDT Respiratory Rate 18 11/09/2023 2:58 PM CDT Oxygen Saturation 99% 11/09/2023 2:58 PM CDT Inhaled Oxygen Concentration - - Weight 88.5 kg (195 lb) 11/09/2023 2:58 PM CDT Height 165.1 cm (5' 5 ) 11/09/2023 2:58 PM CDT Body Mass Index 32.45 11/09/2023 2:58 PM CDT Plan of Treatment Health Maintenance Due Date Last Done Comments Cervical Cancer Screening 1988 Depression Screening 1988 Varicella Vaccines (1 of 2 - 13+ 2-dose series) 2001 Regular Well Visit/Exam 18-64 2006 Pneumococcal vaccine <65 (1 of 2 - PCV) 08/31/2007 DTaP/Tdap/Td Vaccine (3 - Td or Tdap) 03/11/2021 03/11/2011, 04/27/1993 Influenza Vaccine (#1) 2023 3, 03/29/2016, 01/09/2014 Hepatitis B Screening Completed 12/26/2002 Hepatitis C Screening Completed 03/30/2016 , 03/28/2016 HPV Vaccines Aged Out No longer eligi ble based on patient's age to complete this topic Procedures Procedure Name Priority Date/Time Associated Diagnosis Comments SERUM HEPATITIS PANEL Routine 03/30/2016 6:13 AM SENIOR ASIC DESIGN ENGINEER from Last 3 Months or Most Recently Relevant to Health Maintenance Results * (ABNORMAL) Serum Hepatitis panel (03/30/2016 6:13 AM SENIOR ASIC DESIGN ENGINEER) HAV ab, IgM Negative Negative CDR HIST ORICAL RESULTS HBV core ab, IgM Negative Negative CDR HISTORICAL RESULTS HCV ab Positive(A) Negative CDR HIST ORICAL RESULTS Comment:Critical result call ed to and read back byM (MICHELLE GUSTAFSON) on 03/30/2016 07:46:15 CST_ to DD_.Initial Positive result should be confirmed by PCR testing. HBV surface ag Negative Negative CDR HISTORICAL RESULTS Serum 03/30/2016 6:13 AM SENIOR ASIC DESIGN ENGINEER us Historical Provider LAB BLOOD ORDERABLES Nancy lauren Result CDR HISTORICAL RESULTS from Last 3 Months or Most Recently Relevant to Health Maintenance Insurance [facility] [employer] Member Subscriber Plan / Payer (Ef fective 2019-Present) Name:Trupti Frank Leeann Relation to Subscriber:Self Name:Trupti Frank Payer ID:[id number] ([facility]) Type:MEDICAID RISK OTHER Address: [address] [place] [address] Care Teams Channel Development Director Relationship Specialty Start Date End Date No, Physician PCP - General 12/19/19
--- OUTSIDE RECORDS SUMMARY | 2024-05-11 20:16 | XMS_ITS | Referral Summary ---
Author Organization [facility] Address [address] [place] [address] Care Team Providers Care Log Sawyer Name Role Phone Taty Calderon COLLEGE SPECIALIST-BRUSH TRIMMING MACHINE SETTER Primary Care Provider Carmelina Nguyễn COLLEGE SPECIALIST-BRUSH TRIMMING MACHINE SETTER Unavailable [phone] Source Comments [facility],non-owned Affiliates and Associated Physician Practices is amultiple site organization consisting of ambulatory clinics and hospital sitesin [place], [place], [place] and [place]. This disclosure is being madepursuant to the Care Everywhere program and may not contain all information available regarding this patient. Last updated 17.[facility] Allergies Active Allergy Reactions Criticality Noted Date Comments Ibuprofen Swelling 05/25/2013 Medications * Be aware that medications may not be up to date on this document. Alwaysverify current medications with the patient. 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 Cultures growing GPCs - continue vancomycin - Will teach patient to pack wound. F/u at [facility]. Assessment & Plan (10/07/2014 4:15 AM CDT): -1.5 x 1 cm abscess on right dorsal aspect of forearm -CT of right forearm showed 3 cm fluid collection -most likely secondary to IVDU Plan -continue vancomycin Sepsis 10/07/2014 Assessment & Plan (10/11/2014 1:30 PM CDT): Patient presents with fever, tachycardia, and leukocytosis in the setting of an arm abscess with a new onset murmur concerning for endocarditis. However TAMMY negative for vegetation. Speciation is presumably anaerobic. Blood culture 1 is growing strep viridans. Wound culture is growing s. Aureus. Likely polymicrobial bacteremia from licking needles. - Clinda and Ceftin on DC. Culture #2 still pending an anerobic bacteria of unclear significance. 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 Does not have cirrhosis and does not appear to have active hepatitis. - Will watch clinically. Assessment & Plan (10/07/2014 4:20 AM CDT): -Currently not on Hep C treatment Plan -hep C quantiative RNA Heroin abuse 10/07/2014 Assessment & Plan (10/11/2014 1:30 PM CDT): Has been using heroin for 5 years, tried a detox program once 1.5 years ago but relapsed, normally injects in arms 3 times daily and up to 1 gram of heroin. Reports that her withdrawals usually include muscle aches and arthralgias in addition to nausea, vomiting and sweats. - DC with norco only - Holding clonidine because of BP - Xanax PRN. - Zofran PRN Assessment & Plan (10/07/2014 4:20 AM CDT): -uses heroin everyday -high risk for withdrawal Plan -monitor for withdrawal symptoms -HIV panel Social History Tobacco Use Types Packs/Day Years Used Date Smoking Tobacco: Every Day Cigarettes 0.5 12 Smokeless Tobacco: Never Tobacco Cessation:Ready to Q uit: No; Counseling Given: Yes Alcohol Use Standard Drinks/Week Comments No 0 (1 standard drink = 0.6 oz pur e alcohol) Sex and Gender Information Value Date Recorded Sex Assigned at Not on file Gender Identity Not on file Sexual Orientation Not on file Last Filed Vital Signs Vital Sign Reading Time Taken Comments Blood Pressure 114/79 06/07/2018 2:01 PM CDT Pulse 81 06/07/2018 2:01 PM CDT Temperature 36.6 C (97.8 F) 06/07/2018 2:01 PM CDT Respiratory Rate 18 06/07/2018 2:01 PM CDT Oxygen Saturation 99% 06/07/2018 2:01 PM CDT Inhaled Oxygen Concentration - - Weight 93.9 kg (207 lb) 06/07/2018 1:10 PM CDT Height 165.1 cm (5' 5 ) 06/07/2018 1:10 PM CDT Body Mass Index 34.45 06/07/2018 1:10 PM CDT Functional Status Functional Status Response Date of Assess ment Is person deaf or have serious hearing difficult y? No 10/07/2014 Is person blind or have serious difficulty seein g? No 10/07/2014 Does person have serious dif ficulty walking/climbing stairs? No 10/07/2014 Does person have difficulty dressing/bathing? No 10/07/2014 Does person have difficulty doing errands alone? No 10/07/2014 Cognitive Status Response Date of Assessm ent Does person have difficulty concentrating/remembering/making decisions? No 10/07/2014 Plan of Treatment Not on file Procedures Procedure Name Priority Date/Time Associated Diagnosis Comments PAP LB CT+GC CHE +HPV HR DNA Routine 06/06/2018 2:48 PM CDT Screening for malignant neoplasm of cervix Special screening examination for human papillomavirus (HPV) High risk sexual behavior, unspecified type HEPATITIS C RNA QUANTITATIVE AM Draw 10/08/2014 11:47 AM CDT HIV-1 HIV-2 ANTIBODY + HIV P24 AG PANEL AM Draw 10/08/2014 11:47 AM CDT from Last 3 Months or Most Recently Relevant to Health Maintenance Results * PAP LB CT+GC CHE +HPV HR DNA (06/06/2018 2:48 PM CDT) Diagnosis [facility] INSURANCE BILL Comment:NEGATIVE FOR INTRAEP ITHELIAL LESION OR MALIGNANCY. Specimen Adequacy [facility] INSURANCE BILL Comment:Satisfactory for talon luation. No endocervical component is identified. Clinician Provided ICD10 [facility] INSURANCE BILL Comment: Z01.419 Z30.09 Z12.4 Z11.51 Z72.51 Z30.011 Performed by [facility] INSURANCE BILL Comment:Rito Portillo, [facility] otechnologist (ASCP) Comment . [facility] INSURANCE BILL Note [facility] INSURANCE BILL Comment: The Pap smear is a screening test designed to aid in the detection of premalignant and malignant conditions of the uterine cervix. It is not a diagnostic procedure and should not be used as the sole means of detecting cervical cancer. Both false-positive and false-negative reports do occur. . Human papillomavirus High Risk Negative Negative [facility] INSURANCE BILL Comment: This high-risk HPV test detects thirteen high-risk types (16/18/31/33/35/39/45/51/52/56/58/59/68) without differentiation. . Chlamydia CHE Thin Prep Negative Negative [facility] INSURANCE BILL GC DNA Probe Negative Negative [facility] INSURANCE BILL PART OF UTERINE CERVIX / Unknown 06/06/2018 2:48 PM CDT 06/06/2018 Narrative [facility] INSURANCE BILL - 06/08/2018 3:11 PM CDT Source.............Cervix LMP / Prev Treat...[id number] No. of containers..01 ThinPrep Vial Resulting Agency Comment [facility] [place] [place] [id number] Hortensia Zamarripa COLLEGE SPECIALIST-BRUSH TRIMMING MACHINE SETTER LAB - PATHOLOGY/CYTO LOGY ORDERABLES [facility] INSURANCE BILL [address] [place] [address] * HIV-1 HIV-2 ANTIBODY + HIV P24 AG PANEL (10/08/2014 11:47 AM CDT) [facility] HIV1/2 Ab + P24 Ag Non Reactive Non Reactive 10/08/2014 4:38 PM CDT [facility] Blood BLOOD SPECIMEN / Unknown Lab Venipuncture / Unknown 10/08/2014 11:47 AM CDT 10/08/2014 11:51 AM CDT Narrative [facility] - 10/08/2014 4:38 PM CDT No Laboratory evidence of HIV infection. Carissa Joshi MD LAB - CHEMISTRY ODALYS [place] [facility] Organization Address City/State/ZIP Co de Phone Number [facility] [place] [address] * HEPATITIS C RNA QUANTITATIVE PCR (10/08/2014 11:47 AM CDT) [facility] Hepatitis C Virus RNA Quantitative <15 IU/mL 10/10/2014 11:29 AM [facility] [employer] ([facility]) Hepatitis C Virus RNA Log Quantitative <1.2 log IU 10/10/2014 11:29 AM [facility] ([facility]) Comment: INTERPRETIVE INFORMATION: Hepatitis C Virus by Quantitative PCR The quantitative range of this assay is 1.2 - 8.0 log IU/mL (15- 100,000,000 IU/mL). Limit of detection (LOD): 15 IU/mL (1.2 log IU/mL) LOD values do not apply to diluted specimens. An interpretation of Not Detected does not rule out the presence of PCR inhibitors in the patient specimen or hepatitis C virus RNA concentrations below the level of detection of the test. Care should be taken when interpreting any single viral load determination. This test should not be used for blood donor screening, associated re-entry protocols, or for screening Human Cell, Tissues and Cellular Tissue-Based Products (HCT/P). Interpretation Hepatitis C RNA Quantitative Not Detected Not Detected 10/10/2014 11:29 AM [facility] [employer] ([facility]) EER HCV See Note 10/10/2014 11:29 AM CDT [facility] [employer] ([facility]) Comment: To download an enhanced report for this test go to: [email or web address] Blood specimen (specimen) BLOOD SPECIMEN / Unknown Lab Venipuncture / Unknown 10/08/2014 11:47 AM CDT 10/08/2014 11:51 AM CDT Carissa Joshi MD LAB - CHEMISTRY ODALYS [place] Organization Address City/State/ZIP Co de Phone Number [employer] ([facility]) [address] [place] [address], [facility] from Last 3 Months or Most Recently Relevant to Health Maintenance Advance Directives * Full Code (Latest Code Status on File) Date Activated Date Inactivated Comments 10/07/2014 1:59 AM 10/11/2014 4:58 PM Care Teams Log Sawyer Relationship Specialty Start Date End Date Taty Calderon APRN-MICHAEL PCP - General Nurse Practitioner 05/25/13 Carmelina Nguyễn APRN-CNP [address] [place] [address] PCP - Attributed-[employer] Medicaid [place] 12/06/19
--- OUTSIDE RECORDS SUMMARY | 2024-05-11 20:16 | XMS_ITS | CONTINUITY OF CARE DOCUMENT ---
Author Name cedrick philip Address Unknown Organization [facility] Address [address] [place] [address] Phone [phone] Care Team Providers Care Blood Or Blood Bank Technician Name Role Phone Pierce Perez MD Unavailable [phone] IRWIN PACHECO MD Unavailable INSURANCE PROVIDERS Payer name Policy type / Coverage type [place] red libertarian ID [facility] [id number] [facility] Blue Shield [id number]
--- OUTSIDE RECORDS SUMMARY | 2024-05-11 20:16 | XMS_ITS | Patient Health Summary ---
Author Organization [facility] Address [address] [place] [address] Care Team Providers Care Program Director/Morning Show Host Name Role Phone Taty Calderon SLUBBER TENDER[employer]MANAGER [employer] Primary Care Provider Carmelina Nguyễn SLUBBER TENDER-MANAGER [employer] Unavailable [phone] Note from [facility],non-owned Affiliates and Associated Physician Practices is amultiple site organization consisting of ambulatory clinics and hospital sitesin [place], [place] and [place]. This disclosure is being madepursuant to the Care Everywhere program and may not contain all information available regarding this patient. Last updated 17.[facility] Allergies * Ibuprofen(Swelling) Medications * Be aware that medications may not be up to date on this document. Alwaysverify current medications with the patient. * norgestimate-ethinyl estradiol (SPRINTEC 28) 0.25-35 MG-MCG tablet(Started 06/06/2018) Take 1 tablet by mouth once daily 3 refills remaining * metaxalone (SKELAXIN) 800 MG tablet(Started 06/07/2018) Take 1 tablet by mouth 3 times daily as needed for Muscle Spasms Active Problems Problem Noted Date Diagnosed Date Abscess of right arm 10/07/2014 Sepsis 10/07/2014 Hepatitis C 10/07/2014 Heroin abuse 10/07/2014 Social History Tobacco Use Types Packs/Day Years [...] Mass Index 34.45 06/07/2018 1:10 PM CDT Procedures * XR WRIST RIGHT 3VW OR MORE(Performed 06/07/2018) Performed for Arthralgia of right wrist * PAP LB CT+GC CHE +HPV HR DNA(Performed 06/06/2018) Performed for Screening for malignant neoplasm of cervix, Special screening examination for human papillomavirus (HPV), High risk sexual behavior, unspecified type * INFLUENZA A+B - POINT OF CARE (AMB)(Performed 05/19/2018) Performed for Cough * CK BLOOD(Performed 05/27/2016) * COMPREHENSIVE METABOLIC PANEL(Performed 05/27/2016) * CBC W AUTO DIFFERENTIAL(Performed 05/27/2016) * CBC W AUTO DIFFERENTIAL(Performed 05/27/2016) * CULTURE BLOOD(Performed 05/27/2016) * CULTURE BLOOD(Performed 05/27/2016) * CULTURE AEROBIC(Performed 05/26/2016) * CT FOREARM RIGHT W CONTRAST(Performed 05/26/2016) * HCG URINE QUALITATIVE - POCT (IP) [facility](Performed 05/26/2016) * CK BLOOD(Performed 05/26/2016) * COMPREHENSIVE METABOLIC PANEL(Performed 05/26/2016) * LACTIC ACID BLOOD(Performed 05/26/2016) * CBC W AUTO DIFFERENTIAL(Performed 05/26/2016) * CBC W AUTO DIFFERENTIAL(Performed 05/26/2016) * BLOOD GASES CLAY(Performed 05/26/2016) * XR FOREARM RIGHT 2VW OR MORE(Performed 05/26/2016) * XR HAND RIGHT 3VW OR MORE(Performed 05/26/2016) * CARDIAC EKG ORDER(Performed 10/12/2014) * CARDIAC RHYTHM STRIP ORDER(Performed 10/12/2014) * VANCOMYCIN LEVEL TROUGH(Performed 10/10/2014) * RENAL FUNCTION PANEL(Performed 10/10/2014) * CULTURE BLOOD(Performed 10/09/2014) * VANCOMYCIN LEVEL TROUGH(Performed 10/09/2014) * CBC W AUTO DIFFERENTIAL(Performed 10/09/2014) * CULTURE BLOOD(Performed 10/09/2014) * ECHOCARDIOGRAM TRANSESOPHAGEAL(Performed 10/09/2014) Performed for Sepsis, due to unspecified organism * CBC W AUTO DIFFERENTIAL(Performed 10/08/2014) * ERYTHROCYTE SEDIMENTATION RATE(Performed 10/08/2014) * C-REACTIVE PROTEIN SENSITIVE(Performed 10/08/2014) * HIV-1 HIV-2 ANTIBODY + HIV P24 AG PANEL(Performed 10/08/2014) * HEPATITIS C RNA QUANTITATIVE(Performed 10/08/2014) * CARDIAC RHYTHM STRIP ORDER(Performed 10/08/2014) * ECHOCARDIOGRAM 2D WITH DOPPLER(Performed 10/08/2014) Performed for Heroin abuse (HCC) * XR ELBOW RIGHT 3VW OR MORE(Performed 10/07/2014) Performed for Heroin abuse (HCC) * CULTURE WOUND+GRAM STAIN(Performed 10/07/2014) * CULTURE ANAEROBE(Performed 10/07/2014) * URINALYSIS REFLEX MICROSCOPIC REFLEX CULTURE(Performed 10/07/2014) * CULTURE URINE(Performed 10/07/2014) * CULTURE MRSA(Performed 10/07/2014) * CBC W AUTO DIFFERENTIAL(Performed 10/07/2014) * LACTIC ACID BLOOD(Performed 10/07/2014) * MAGNESIUM BLOOD(Performed 10/07/2014) * BASIC METABOLIC PANEL (CALCIUM TOTAL)(Performed 10/07/2014) * CT UPPER EXT RIGHT WWO CONTRAST(Performed 10/06/2014) Performed for Cellulitis and abscess of unspecified site, 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) * CULTURE BLOOD(Performed 10/06/2014) Performed for Cellulitis and abscess of unspecified site, 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) * EKG 12-LEAD(Performed 10/06/2014) Performed for Cellulitis and abscess of unspecified site, 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) * CULTURE BLOOD(Performed 10/06/2014) Performed for Cellulitis and abscess of unspecified site, 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) * HCG BLOOD QUALITATIVE(Performed 10/06/2014) * COMPREHENSIVE METABOLIC PANEL(Performed 10/06/2014) Performed for Cellulitis and abscess of unspecified site, 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) * CBC W AUTO DIFFERENTIAL(Performed 10/06/2014) Performed for Cellulitis and abscess of unspecified site, 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) * CULTURE BLOOD(Performed 10/06/2014) Performed for Cellulitis and abscess of unspecified site, 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) * XR CERVICAL SPINE 4 OR 5VW(Performed 01/05/2014) Performed for Torticollis, unspecified * HCG URINE QUALITATIVE - POINT OF CARE(Performed 07/23/2013) * URINALYSIS REFLEX MICROSCOPIC REFLEX CULTURE(Performed 07/23/2013) * URINE MICROSCOPIC ONLY REFLEX TO CULTURE(Performed 07/23/2013) * CULTURE URINE(Performed 07/23/2013) Results * XR WRIST 3+ VW RIGHT [id number] (06/07/2018 1:26 PM CDT) Anatomical Region Laterality Modality Wrist / Hand Radiographic Lizbeth ging 06/07/2018 1:29 PM CDT Narrative 06/07/2018 1:29 PM CDT PROCEDURE: XR WRIST RIGHT 3VW OR MORE 06/07/2018 1:29 PM HISTORY: Pain in right wrist. COMPARISON: None Report: No displaced fracture, dislocation or aggressive bone lesion seen. The soft tissues appear within normal limits; no radiopaque foreign body seen. Procedure Note Santy Kaiser MD - 06/07/2018 PROCEDURE: XR WRIST RIGHT 3VW OR MORE 06/07/2018 1:29 PM HISTORY: Pain in right wrist. COMPARISON: None Report: No displaced fracture, dislocation or aggressive bone lesion seen. The soft tissues appear within normal limits; no radiopaque foreign body seen. [place] SLUBBER TENDER-MANAGER [employer] DIAGNOSTIC LIZBETH GING ORDERABLES * PAP LB CT+GC CHE +HPV HR DNA (06/06/2018 2:48 PM CDT) Diagnosis [facility] INSURANCE BILL Comment:NEGATIVE FOR INTRAEP ITHELIAL LESION OR MALIGNANCY. Specimen Adequacy [facility] INSURANCE BILL Comment:Satisfactory for talon luation. No endocervical component is identified. Clinician Provided ICD10 [facility] INSURANCE BILL Comment: Z01.419 Z30.09 Z12.4 Z11.51 Z72.51 Z30.011 Performed by [employer] INSURANCE BILL Comment:Rito Portillo, [facility] otechnologist (ASCP) Comment . [facility] INSURANCE BILL [...] 3:11 PM CDT Source.............Cervix LMP / Prev Treat...LWG=[id number] No. of containers..01 ThinPrep Vial Resulting Agency Comment [address] [place] [id number] [facility] LAB - PATHOLOGY/CYTO LOGY ORDERABLES [facility] INSURANCE BILL [address] [place] [address] * INFLUENZA A+B - POINT OF CARE (AMB) (05/19/2018) Influenza A Antigen Rapid Negative Negative Influenza B Antigen Rapid Negative Negative Influenza Internal Control positive NEGATIVE - POSITIVE Influenza Lot Number [id number] Influenza Expiration Date 03/06/2020 Other SPECIMEN FROM NASOPHARYNGEAL STRUCTURE / Unknown 05/19/2018 Celestine Silva PA-C LAB - POINT OF CARE ORDERABLES * (ABNORMAL) CBC W AUTO DIFFERENTIAL (05/27/2016 6:50 AM CDT) Only the most recent of8 resultswithin the time period is included. WBC 7.8 3.5 - 10.5 10 3/uL [facility] RBC 4.47 3.90 - 5.00 10 6/uL [facility] Hemoglobin 12.0 12.0 - 15.5 g/dL [facility] Hematocrit 36.8 35.0 - 45.0 % [facility] MCV 82.3 81.0 - 97.0 fL [facility] MCH 26.8(L) 28.0 - 34.0 pg [facility] MCHC 32.6 32.0 - 36.0 g/dL [facility] Platelet Count 255 150 - 400 10 3/uL [facility] RDW-SD 38.9 36.0 - 50.0 fL [facility] RDW-CV 12.9 11.2 - 14.8 % [facility] MPV 9.6 9.3 - 12.8 fL [facility] Neutrophils % 63.3 35.0 - 70.0 % [facility] Lymphocytes % 31.3 19.7 - 55.1 % [facility] Monocytes % 5.3 3.0 - 15.0 % [facility] Eosinophils % 0.0 0.0 - 6.0 % [facility] Basophil % 0.1 0.0 - 1.5 % [facility] Neutrophils Absolute 4.9 1.6 - 7.0 10 3/uL [facility] Lymphocyte Absolute 2.4 0.8 - 2.9 10 3/uL [facility] Monocytes Absolute 0.41 0.14 - 0.66 10 3/uL [facility] Eosinophils Absolute 0.00 0.00 - 0.22 10 3/uL [facility] Basophils Absolute 0.01 0.00 - 0.06 10 3/uL [facility] Immature Granulocytes % 0.1 0.0 - 1.0 % [facility] Blood specimen (specimen) BLOOD SPECIMEN / Unknown 05/27/2016 6:50 AM CDT 05/27/2016 6:50 AM CDT Kevon Jensen MD LAB - HEMATOLOGY ORDERABLES [facility] [address] [phone] * (ABNORMAL) COMPREHENSIVE METABOLIC PANEL (05/27/2016 6:50 AM CDT) Only the most recent of3 resultswithin the time period is included. [facility] BUN 6(L) 7 - 26 mg/dL [facility] Creatinine 0.6 0.6 - 1.2 mg/dL [facility] Sodium 137 136 - 145 mmol/L [facility] Potassium 3.7 3.5 - 4.5 mmol/L [facility] Chloride 106 98 - 107 mmol/L [facility] CO2 24 22 - 29 mmol/L [facility] Glucose 92 70 - 115 mg/dL [facility] Calcium 8.3(L) 8.4 - 10.2 mg/dL [facility] Protein Total 6.5 6.0 - 8.3 g/dL [facility] Albumin 2.9(L) 3.4 - 5.0 g/dL [facility] Bilirubin Total 0.4 0.2 - 1.2 mg/dL [facility] Alkaline Phosphatase 82 40 - 150 Units/L [facility] ALT 15 0 - 55 Units/L [facility] AST 29 5 - 34 Units/L [facility] Anion Gap 11 8 - 18 [facility] BUN/Creatinine Ratio 10 7 - 23 [facility] Osmolality Calculated 281 270 - 300 mOsm/kg [facility] Albumin/Globulin Ratio 0.8(L) 1.1 - 2.3 [facility] eGFR >60 >60 mL/min/1.7 3 m2 [facility] Blood specimen (specimen) BLOOD SPECIMEN / Unknown 05/27/2016 6:50 AM CDT 05/27/2016 6:50 AM CDT Kevon Jensen MD LAB - CHEMISTRY O RDERABLES [facility] [address] [phone] * (ABNORMAL) CK BLOOD (05/27/2016 6:50 AM CDT) Only the most recent of2 resultswithin the time period is included. [facility] CK Total 783(H) 30 - 200 Units/L [facility] Blood specimen (specimen) BLOOD SPECIMEN / Unknown 05/27/2016 6:50 AM CDT 05/27/2016 6:50 AM CDT Kevon Jensen MD LAB - CHEMISTRY O RDERABLES Performing Organization Address City/[facility]/ZIP Co de Phone Number [address] [phone] * CULTURE BLOOD (05/27/2016 6:42 AM CDT) Only the most recent of7 resultswithin the time period is included. Culture Blood No Growth at 5 days [facility] Blood specimen (specimen) 05/27/2016 6:42 AM CDT 05/27/2016 6:50 AM CDT Narrative [facility] - 06/01/2016 7:00 AM CDT Draw 15 minutes after Culture 1 from a different site Kevon Jensen MD LAB - MICROBIOLOG Y ORDERABLES Performing Organization Address [facility] Co de Phone Number [address] [phone] * (ABNORMAL) CULTURE AEROBIC (05/26/2016 10:03 PM CDT) Culture Aerobic No Growth at 24 hours [facility] Culture Aerobic VIRIDANS STREPTOCOCCI(A) [facility] Comment: Growth in Thioglycollate Broth Viridans Streptococci After 72 hours. Gram Stain Few Polymorphonuclear Cells [facility] Gram Stain Few Gram Negative bacilli [facility] Gram Stain Rare Gram positive cocci in pairs [facility] Abscess 05/26/2016 10:0 3 PM CDT 05/26/2016 10:37 PM CDT Narrative [facility] - 05/30/2016 3:00 PM CDT Specimen Type->Abscess Gram Stains are routinely screened for the presence of Polymorphonuclear Cells. Kevon Jensen MD LAB - MICROBIOLOG Y ORDERABLES [facility] [address] [phone] * CT FOREARM RIGHT W CONTRAST (05/26/2016 6:42 PM CDT) Anatomical Region Laterality Modality Upper Extremity Other Impressions 05/27/2016 7:26 AM CDT IMPRESSION: 2.0 x 1.6 x 1.2 cm rim-enhancing fluid collection along the anterolateral aspect of the elbow abutting the skin surface consistent with an abscess. Report dictated by Nichelle Bowman M.D. I, Dr. JOAQUIM SCOTT MD have personally reviewed and interpreted this examination/study. This report was electronically signed by JOAQUIM SCOTT MD on 05/27/2016 7:26 AM . Narrative 05/27/2016 7:26 AM CDT EXAM: Computed tomography (CT) of the right forearm with contrast HISTORY: abscess vs cellulitis TECHNIQUE: CT of the right forearm was performed following the uneventful administration of 100 mL of Omnipaque 350 intravenous contrast according to standard protocol. COMPARISON: Right forearm radiographs from 05/26/2016. FINDINGS: There is soft tissue swelling and edema in the hand and forearm. The hand, there is mild patchy heterogeneous diminished attenuation in some of the muscles which may represent edema or myositis. In the anterolateral aspect of the proximal forearm at the level of the elbow, there is a rim-enhancing fluid collection measuring approximately 2.0 x 1.6 x 1.2 cm, which abuts the skin surface and is concerning for a small abscess. There is adjacent high attenuation material which likely represents inflamed tissue. No other abscess is seen. No acute fracture or dislocation is identified. No bone erosion is seen. Procedure Note Joaquim Scott MD - 06/03/2017 EXAM: Computed tomography (CT) of the right forearm with contrast HISTORY: abscess vs cellulitis TECHNIQUE: CT of the right forearm was performed following the uneventfuladministration of 100 mL of Omnipaque 350 intravenous contrast accordingto standard protocol. COMPARISON: Right forearm radiographs from 05/26/2016. FINDINGS: There is soft tissue swelling and edema in the hand and forearm. The hand,there is mild patchy heterogeneous diminished attenuation in some of themuscles which may represent edema or myositis. In the anterolateral aspectof the proximal forearm at the level of the elbow, there is a rim-enhancing fluid collection measuringapproximately 2.0 x 1.6 x 1.2 cm, which abuts the skin surface and isconcerning for a small abscess. There is adjacent high attenuationmaterial which likely represents inflamed tissue. No other abscess is seen. No acute fracture or dislocation isidentified. No bone erosion is seen. IMPRESSION IMPRESSION: 2.0 x 1.6 x 1.2 cm rim-enhancing fluid collection along the anterolateralaspect of the elbow abutting the skin surface consistent with anabscess. Report dictated by Nichelle Bowman M.D. I, Dr. JOAQUIM SCOTT MD have personally reviewed and interpreted thisexamination/study. This report was electronically signed by JOAQUIM SCOTT MD on 05/27/20167:26 AM . Robb Pace MD CT ORDERABLES * HCG URINE QUALITATIVE - POCT (IP) [facility] (05/26/2016 5:57 PM CDT) Test Urine negative [facility] Urine specimen (specimen) 05/26/2016 5:57 PM CDT Narrative [facility] - 05/26/2016 5:57 PM CDT Negative Robb Pace MD LAB - POINT OF CARE ORDERABLES [facility] * (ABNORMAL) BLOOD GASES CLAY (05/26/2016 4:15 PM CDT) pH Mixed Venous 7.43(H) 7.30 - 7.40 [facility] pCO2 Mixed Venous 36(L) 40 - 46 mmHg [facility] pO2 Mixed Venous 94(H) 35 - 42 mmHg [facility] HCO3 Mixed Venous 23.1 22.0 - 26.0 mmol/L [facility] TCO2 Mixed Venous 24.2(L) 25.0 - 29.0 mmol/L [facility] Base Excess Venous -0.9 -2.0 - 2.0 mmol/L [facility] Hemoglobin Mixed Venous 12.3 12.0 - 15.5 g/dL [facility] Oxyhemoglobin Mixed Venous 96.2(H) 66.0 - 77.0 % [facility] Carboxyhemoglobin Venous 0.3 0.0 - 3.0 % [facility] Methemoglobin 0.5 0.0 - 2.0 % [facility] FI O2 Mixed Venous 21.0 % [facility] Blood specimen (specimen) BLOOD SPECIMEN / Unknown 05/26/2016 4:15 PM CDT 05/26/2016 4:19 PM CDT Narrative [facility] - 05/26/2016 4:23 PM CDT FIO2->21 Robb Pace MD LAB - BLOOD GASES OR DERABLES [address] [phone] * LACTIC ACID BLOOD (05/26/2016 4:15 PM CDT) Only the most recent of2 resultswithin the time period is included. Lactic Acid-Stat 0.7 0.5 - 2.0 mmol/L [facility] Blood specimen (specimen) BLOOD SPECIMEN / Unknown 05/26/2016 4:15 PM CDT 05/26/2016 4:19 PM CDT Robb Pace MD LAB - CHEMISTRY ORDE RABTARIQ Performing Organization Address City/[facility]/ZIP Co de Phone Number [address] [phone] * XR FOREARM RIGHT 2VW (05/26/2016 3:52 PM CDT) Anatomical Region Laterality Modality Upper Extremity Other Impressions 05/26/2016 4:26 PM CDT Impression: No acute osseous abnormality. Diffuse soft tissue swelling. No foreign body. This report was electronically signed by JOSELIN MICHELE M.D. on 05/26/2016 4:26 PM . Narrative 05/26/2016 4:26 PM CDT Exam: PX FOREARM RIGHT 2 VW Date: 05/26/2016 3:52 PM History: abscess assess FB Findings: There is no fracture or dislocation. Osseous architecture and density are normal. There is diffuse soft tissue swelling. No foreign body is demonstrated. Procedure Note Joselin Michele MD - 06/03/2017 Exam: PX FOREARM RIGHT 2 VW Date: 05/26/2016 3:52 PM History: abscess assess FB Findings: There is no fracture or dislocation. Osseous architecture and density arenormal. There is diffuse soft tissue swelling. No foreign body isdemonstrated. IMPRESSION Impression: No acute osseous abnormality. Diffuse soft tissue swelling. No foreign body. This report was electronically signed by JOSELIN MICHELE M.D. on 05/26/20164:26 PM . Robb Pace MD DIAGNOSTIC IMAGING O RDERABLES * XR HAND RIGHT 3VW OR MORE (05/26/2016 3:52 PM CDT) Anatomical Region Laterality Modality Wrist / Hand Other Impressions 05/26/2016 4:42 PM CDT IMPRESSION: No acute osseous abnormality. Diffuse soft tissue swelling. No foreign body. Dictated by Pramod Auguste MD (vice president payer). I, Dr. JOSELIN MICHELE M.D. have personally reviewed and interpreted this examination/study. This report was electronically signed by JOSELIN MICHELE M.D. on 05/26/2016 4:42 PM . Narrative 05/26/2016 4:42 PM CDT EXAMINATION: PX HAND RIGHT 3+ VW HISTORY: cellulitis/abscess COMPARISON: No prior study is available for comparison. FINDINGS: The osseous structures are intact and well aligned without acute fracture or dislocation. The joint spaces are preserved. Bone density and texture are normal. Diffuse soft tissue swelling is present. No radiopaque foreign body is identified. Procedure Note Joselin Michele MD - 06/03/2017 EXAMINATION: PX HAND RIGHT 3+ VW HISTORY: cellulitis/abscess COMPARISON: No prior study is available for comparison. FINDINGS: The osseous structures are intact and well aligned without acute fractureor dislocation. The joint spaces are preserved. Bone density and textureare normal. Diffuse soft tissue swelling is present. No radiopaque foreign body is identified. IMPRESSION IMPRESSION: No acute osseous abnormality. Diffuse soft tissue swelling. No foreign body. Dictated by Pramod Auguste MD (vice president payer). I, Dr. JOSELIN MICHELE M.D. have personally reviewed and interpreted thisexamination/study. This report was electronically signed by JOSELIN MICHELE M.D. on 05/26/20164:42 PM . Robb Pace MD DIAGNOSTIC IMAGING O RDERABLES * CARDIAC RHYTHM STRIP ORDER (10/12/2014 10:34 PM CDT) Only the most recent of2 resultswithin the time period is included. Narrative 10/12/2014 10:34 PM CDT Ordered by an unspecified provider. Scanned Document CARDIAC SERVICES ORD ERABLES * CARDIAC EKG ORDER (10/12/2014 10:34 PM CDT) Narrative 10/12/2014 10:34 PM CDT Ordered by an unspecified provider. Scanned Document CARDIAC SERVICES ORD ERABLES * (ABNORMAL) RENAL FUNCTION PANEL (10/10/2014 3:57 AM CDT) Glucose 109(H) 74 - 106 mg/dL 10/10/2014 4:51 AM CDT [facility] Sodium 140 136 - 145 mmol/L 10/10/2014 4:51 AM CDT [facility] Potassium 3.7 3.5 - 5.1 mmol/L 10/10/2014 4:51 AM CDT [facility] Chloride 107 98 - 107 mmol/L 10/10/2014 4:51 AM CDT [facility] CO2 26 22 - 31 mmol/L 10/10/2014 4:51 AM CDT [facility] Calcium 8.7 8.5 - 10.1 mg/dL 10/10/2014 4:51 AM CDT [facility] Anion Gap 7 5 - 20 mmol/L 10/10/2014 4:51 AM CDT [facility] BUN 9 7 - 21 mg/dL 10/10/2014 4:51 AM CDT [facility] Creatinine 0.59 0.50 - 1.30 mg/dL 10/10/2014 4:51 AM CDT [facility] Albumin 2.7(L) 3.4 - 5.0 gm/dL 10/10/2014 4:51 AM CDT [facility] Phosphorus 5.1(H) 2.5 - 4.9 mg/dL 10/10/2014 4:51 AM CDT [facility] eGFR by MDRD >60 >60 mL/min/1.7 3m2 10/10/2014 4:51 AM CDT [facility] eGFR by MDRD >60 >60 mL/min/1.7 3m2 10/10/2014 4:51 AM CDT [facility] Blood BLOOD SPECIMEN / Unknown Lab Venipuncture / Unknown 10/10/2014 3:57 AM CDT 10/10/2014 4:26 AM CDT Wendy Aponte [facility] LAB - CHEMISTRY ODALYS SEGOVIA Performing Organization Address City/[facility] Co de Phone Number [facility] [address] [place] [id number] * VANCOMYCIN LEVEL TROUGH (10/10/2014 3:57 AM CDT) Only the most recent of2 resultswithin the time period is included. [facility] Vancomycin Trough 7.8 5.0 - 15.0 ug/mL 10/10/2014 4:57 AM CDT [facility] Blood BLOOD SPECIMEN / Unknown Lab Venipuncture / Unknown 10/10/2014 3:57 AM CDT 10/10/2014 4:25 AM CDT Honey Garcia MD LAB - CHEMISTRY ODALYS SEGOVIA [facility] [address] [place] [id number] * ECHOCARDIOGRAM TRANSESOPHAGEAL (10/09/2014 1:03 PM CDT) 10/09/2014 1:03 PM CDT Narrative [facility] - 10/09/2014 3:[address] [facility] [address] [place] [address] Transesophageal Echocardiogram 2D, Doppler, and Color Doppler Patient: ERWIN FRANK MR number: [id number] Height: 65 in Weight: 160 lb BSA: 1.8 m Study date: 09-Oct-2014 : 1990 Age: 24 years Gender: Female Race: 2 Allergies: IBUPROFEN Reading Physician: Aiyana Rivas MD Referring Physician: Aiyana Rivas MD Necktie Turner: Tae Celaya RDCS Performing Physician: Aiyana Rivas MD Summary: - Clinical question: - SEPSIS - Left ventricle: - Systolic function was normal. Ejection fraction was estimated in the range of 55 % to 65 %. - There were no regional wall motion abnormalities. - Wall thickness was normal. - Aortic valve: - There was no evidence for vegetation. - Mitral valve: - There was mild regurgitation. - There was no evidence for vegetation. - Atrial septum: - Contrast injection was performed. There was no [id number] shunt, with provocative maneuvers to increase right atrial pressure. - Contrast injection was performed. There was no [id number] shunt, with provocative maneuvers to increase right atrial pressure. Indications: SEPSIS Procedure: The procedure was performed in the echo lab. This was a routine study. The transesophageal approach was used. TAMMY probe was inserted without difficulty . IV propofol, fentanyl, and versed was given by anesthesia service. The study included complete 2D imaging, limited spectral Doppler, and color Doppler. Systolic blood pressure was 112 mmHg. Diastolic blood pressure was 96 mmHg. There were no complications during the procedure. Left ventricle: Size was normal. Systolic function was normal. Ejection fraction was estimated in the range of 55 % to 65 %. There were no regional wall motion abnormalities. Wall thickness was normal. Aortic valve: The valve was trileaflet. Leaflets exhibited normal thickness and normal cuspal separation. There was no evidence for vegetation. Doppler: There was no regurgitation. Aorta: The root exhibited normal size. There was no atheroma. There was no evidence for dissection. There was no evidence for aneurysm. Mitral valve: Valve structure was normal. There was normal leaflet separation. There was no evidence for vegetation. Doppler: The transmitral velocity was within the normal range. There was no evidence for stenosis. There was mild regurgitation. Left atrium: Size was normal. No thrombus was identified. Appendage: The size was normal. The function was normal (normal emptying velocity). No thrombus was identified. Atrial septum: No defect or patent foramen ovale was identified. Contrast injection was performed. There was no ahhhv-ws-tqxv shunt, with provocative maneuvers to increase right atrial pressure. Contrast injection was performed. There was no rpnmx-ww-hkwd shunt, with provocative maneuvers to increase right atrial pressure. Right ventricle: The size was normal. Systolic function was normal. Wall thickness was normal. Pulmonic valve: Leaflets exhibited normal thickness, no calcification, and normal cuspal separation. There was no evidence for vegetation. Doppler: There was no regurgitation. Tricuspid valve: The valve structure was normal. There was normal leaflet separation. There was no evidence for vegetation. Doppler: There was no regurgitation. Right atrium: Size was normal. No thrombus was identified. Pericardium: The pericardium was normal in appearance. Prepared and signed by Aiyana Rivas MD Signed 09-Oct-2014 15:05:51 Procedure Note Eber Rivas MD - 10/09/2014 [place] [address] Transesophageal Echocardiogram 2D, Doppler, and Color Doppler Patient: ERWIN FRANK MR number: [id number] Height: 65 in Weight: 160 lb BSA: 1.8 m Study date: 09-Oct-2014 : 1990 Age: 24 years Gender: Female Race: 2 Allergies: IBUPROFEN Reading Physician: Aiyana Rivas MD Referring Physician: Aiyana Rivas MD Necktie Turner: Tae Celaya RDCS Performing Physician: Aiyana Rivas MD Summary: - Clinical question: - SEPSIS - Left ventricle: - Systolic function was normal. Ejection fraction was estimated in the range of 55 % to 65 %. - There were no regional wall motion abnormalities. - Wall thickness was normal. - Aortic valve: - There was no evidence for vegetation. - Mitral valve: - There was mild regurgitation. - There was no evidence for vegetation. - Atrial septum: - Contrast injection was performed. There was no xcpsl-ez-honj shunt, with provocative maneuvers to increase right atrial pressure. - Contrast injection was performed. There was no vtats-mf-wpuf shunt, with provocative maneuvers to increase right atrial pressure. Indications: SEPSIS Procedure: The procedure was performed in the echo lab. This was a routine study. The transesophageal approach was used. TAMMY probe was inserted without difficulty . IV propofol, fentanyl, and versed was given by anesthesia service. The study included complete 2D imaging, limited spectral Doppler, and color Doppler. Systolic blood pressure was 112 mmHg. Diastolic blood pressure was 96 mmHg. There were no complications during the procedure. Left ventricle: Size was normal. Systolic function was normal. Ejection fraction was estimated in the range of 55 % to 65 %. There were no regional wall motion abnormalities. Wall thickness was normal. Aortic valve: The valve was trileaflet. Leaflets exhibited normal thickness and normal cuspal separation. There was no evidence for vegetation. Doppler: There was no regurgitation. Aorta: The root exhibited normal size. There was no atheroma. There was no evidence for dissection. There was no evidence for aneurysm. Mitral valve: Valve structure was normal. There was normal leaflet separation. There was no evidence for vegetation. Doppler: The transmitral velocity was within the normal range. There was no evidence for stenosis. There was mild regurgitation. Left atrium: Size was normal. No thrombus was identified. Appendage: The size was normal. The function was normal (normal emptying velocity). No thrombus was identified. Atrial septum: No defect or patent foramen ovale was identified. Contrast injection was performed. There was no svcmp-hw-bewu shunt, with provocative maneuvers to increase right atrial pressure. Contrast injection was performed. There was no hbxmh-tm-szxb shunt, with provocative maneuvers to increase right atrial pressure. Right ventricle: The size was normal. Systolic function was normal. Wall thickness was normal. Pulmonic valve: Leaflets exhibited normal thickness, no calcification, and normal cuspal separation. There was no evidence for vegetation. Doppler: There was no regurgitation. Tricuspid valve: The valve structure was normal. There was normal leaflet separation. There was no evidence for vegetation. Doppler: There was no regurgitation. Right atrium: Size was normal. No thrombus was identified. Pericardium: The pericardium was normal in appearance. Prepared and signed by Aiyana Rivas MD Signed 09-Oct-2014 15:05:51 Blake Rivas MD ECHO ORDERABLES [facility] [address] [place] [address] * HIV-1 HIV-2 ANTIBODY + HIV P24 AG PANEL (10/08/2014 11:47 AM CDT) [facility] HIV1/2 Ab + P24 Ag Non Reactive Non Reactive 10/08/2014 4:38 PM CDT [facility] Blood BLOOD SPECIMEN / Unknown Lab Venipuncture / Unknown 10/08/2014 11:47 AM CDT 10/08/2014 11:51 AM CDT Narrative [facility] - 10/08/2014 4:38 PM CDT No Laboratory evidence of HIV infection. Carissa Joshi MD LAB - CHEMISTRY ODALYS SEGOVIA [facility] [address] [phone] * HEPATITIS C RNA QUANTITATIVE PCR (10/08/2014 11:47 AM CDT) [facility] Hepatitis C Virus RNA Quantitative <15 IU/mL 10/10/2014 11:29 AM [facility] [employer] ([facility]) Hepatitis C Virus RNA Log Quantitative <1.2 log IU 10/10/2014 11:29 AM [facility] ([facility]) Comment: INTERPRETIVE INFORMATION: Hepatitis C Virus [...] Not Detected Not Detected 10/10/2014 11:29 AM [facility] [employer] ([facility]) EER HCV See Note 10/10/2014 11:29 AM [facility] ([facility]) Comment: To download an enhanced report for this test go to: [email or web address] Blood specimen (specimen) BLOOD SPECIMEN / Unknown Lab Venipuncture / Unknown 10/08/2014 11:47 AM CDT 10/08/2014 11:51 AM CDT Carissa Joshi MD LAB - CHEMISTRY ODALYS SEGOVIA Performing Organization Address [facility]/ZIP Co de Phone Number [facility] ([facility]) [address] * (ABNORMAL) C-REACTIVE PROTEIN SENSITIVE (10/08/2014 11:47 AM CDT) [facility] C-Reactive Protein High Sensitivity 13.40(H) <0.30 mg/dL 10/08/2014 12:42 PM CDT [facility] Blood BLOOD SPECIMEN / Unknown Lab Venipuncture / Unknown 10/08/2014 11:47 AM CDT 10/08/2014 11:51 AM CDT Narrative [facility] - 10/08/2014 12:42 PM CDT C-REACTIVE PROTEIN SENSITIVE INTERPRETATION Patients with higher hs-CRP concentrations are more likely to develop stroke, myocardial infarction, and severe peripheral vascular disease. CRP is a nonspecific marker of inflammation and a variety of conditions other than atherosclerosis may cause elevated concentrations. If the first result is greater than 0.30 mg/dL, recommend repeating test at least 2 weeks later in a metabolically stable state, free of infection or acute illness. The lower of the two results should be used to determine the patient's risk. C-REACTIVE PROTEIN SENSITIVE results are used to assign risk as follows: Less than 0.10 mg/dL Low risk 0.10-0.30 mg/dL Average risk 0.31-0.99 mg/dL High risk Greater than 0.99 mg/dL Very high risk (Clin Chem 2009; 55:378-84) Denisa Fry MD LAB - CHEMISTRY ODALYS SEGOVIA Performing Organization Address City/[facility]/ZIP Co de Phone Number [facility] [address] [place] [address] * (ABNORMAL) SED RATE WESTERGREN (10/08/2014 11:47 AM CDT) Erythrocyte Sedimentation Rate Catarino 38(H) 0 - 20 mm/hr 10/08/2014 12:48 PM CDT [facility] Blood BLOOD SPECIMEN / Unknown Lab Venipuncture / Unknown 10/08/2014 11:47 AM CDT 10/08/2014 11:51 AM CDT Denisa Fry MD LAB - HEMATOLOGY ORD ERABLES [facility] [address] [place] [address] * ECHOCARDIOGRAM 2D WITH DOPPLER (10/08/2014 8:47 AM CDT) 10/08/2014 8:47 AM CDT Narrative [facility] - 10/08/2014 6:21 PM CDT Transthoracic Echocardiogram 2D, M-mode, Doppler, and Color Doppler Patient: ERWIN FRANK MR number: [id number] Height: 65 in Weight: 159.7 lb BSA: 1.8 m Study date: 08-Oct-2014 : 1990 Age: 24 years Gender: Female Race: Allergies: IBUPROFEN Referring Physician: Gerald Espitia MD Necktie Turner: Liliana Pinto [facility] Reading Physician: Mc Deal MD, [facility] Summary: - Clinical question: - Heroin abuse - Left ventricle: - Systolic function was vigorous. Ejection fraction was estimated to be 65 %. - There were no regional wall motion abnormalities. - Wall thickness was normal. - Inferior vena cava, hepatic veins: - Normal IV cava so Ra pressure would be 0-5 mm Hg Indications: Heroin abuse Procedure: The procedure was performed in the echo lab. This was a routine study. The transthoracic approach was used. The study included complete 2D imaging, M-mode, complete spectral Doppler, and color Doppler. The heart rate was 66 bpm. Systolic blood pressure was 98 mmHg. Diastolic blood pressure was 50 mmHg. Image quality was good. Left ventricle: Size was normal. Systolic function was vigorous. Ejection fraction was estimated to be 65 %. There were no regional wall motion abnormalities. Wall thickness was normal. Doppler: Left ventricular diastolic function parameters were normal, based only on LV inflow velocity as there was no tissue Doppler off itral annulus. Pulm Vein has normal velocities Aortic valve: Doppler: There was no stenosis. There was no regurgitation. Aorta: The root exhibited normal size. The aortic arch was normal in size. Mitral valve: Valve structure was normal. There was normal leaflet separation. Doppler: The transmitral velocity was within the normal range. There was no evidence for stenosis. There was no regurgitation. Left atrium: Size was normal. Right ventricle: The size was normal. Systolic function was normal. Wall thickness was normal. Pulmonic valve: Leaflets exhibited normal thickness, no calcification, and normal cuspal separation. Doppler: There was no regurgitation. Tricuspid valve: The valve structure was normal. There was normal leaflet separation. Doppler: The transtricuspid velocity was within the normal range. There was no evidence for tricuspid stenosis. There was no regurgitation. Right atrium: Size was normal. Systemic veins: IVC: Normal IV cava so Ra pressure would be 0-5 mm Hg Pericardium: There was no pericardial effusion. The pericardium was normal in appearance. System measurement tables 2D Ao Diam: 2.9 cm LVOT Diam: 2 cm LA Diam: 3.5 cm LAEDV Index (A-L): 22 ml/m2 LAEDV(A-L): 39.5 ml IVSd: 0.8 cm IVSs: 1.1 cm LVIDd: 5 cm LVIDs: 3.1 cm LVPWd: 0.8 cm LVPWs: 1.2 cm CW AV VTI: 35.3 cm AV Vmax: 1.5 m/s AV Vmean: 1 m/s AV maxP.1 mmHg AV meanP.6 mmHg PV Vmax: 1.1 m/s PV maxP.8 mmHg MM TAPSE: 2.1 cm PW MINDI (VTI): 2.4 cm2 MINDI Vmax: 2.4 cm2 LVOT VTI: 27.3 cm LVOT Vmax: 1.1 m/s LVOT Vmean: 0.7 m/s LVOT maxP.2 mmHg LVOT meanP.5 mmHg MV E/A Ratio: 1.7 Prepared and signed by Mc Deal MD, MACP, FACC Signed 08-Oct-2014 18:20:44 Procedure Note Mc Deal MD - 10/08/2014 Transthoracic Echocardiogram 2D, M-mode, Doppler, and Color Doppler Patient: ERWIN FRANK MR number: [id number] Height: 65 in Weight: 159.7 lb BSA: 1.8 m Study date: 08-Oct-2014 : 1990 Age: 24 years Gender: Female Race: Allergies: IBUPROFEN Referring Physician: Gerald Espitia MD Necktie Turner: Liliana Pinto DARELL Reading Physician: Mc Deal MD, [facility] Summary: - Clinical question: - Heroin abuse - Left ventricle: - Systolic function was vigorous. Ejection fraction was estimated to be 65 %. - There were no regional wall motion abnormalities. - Wall thickness was normal. - Inferior vena cava, hepatic veins: - Normal IV cava so Ra pressure would be 0-5 mm Hg Indications: Heroin abuse Procedure: The procedure was performed in the echo lab. This was a routine study. The transthoracic approach was used. The study included complete 2D imaging, M-mode, complete spectral Doppler, and color Doppler. The heart rate was 66 bpm. Systolic blood pressure was 98 mmHg. Diastolic blood pressure was 50 mmHg. Image quality was good. Left ventricle: Size was normal. Systolic function was vigorous. Ejection fraction was estimated to be 65 %. There were no regional wall motion abnormalities. Wall thickness was normal. Doppler: Left ventricular diastolic function parameters were normal, based only on LV inflow velocity as there was no tissue Doppler off itral annulus. Pulm Vein has normal velocities Aortic valve: Doppler: There was no stenosis. There was no regurgitation. Aorta: The root exhibited normal size. The aortic arch was normal in size. Mitral valve: Valve structure was normal. There was normal leaflet separation. Doppler: The transmitral velocity was within the normal range. There was no evidence for stenosis. There was no regurgitation. Left atrium: Size was normal. Right ventricle: The size was normal. Systolic function was normal. Wall thickness was normal. Pulmonic valve: Leaflets exhibited normal thickness, no calcification, and normal cuspal separation. Doppler: There was no regurgitation. Tricuspid valve: The valve structure was normal. There was normal leaflet separation. Doppler: The transtricuspid velocity was within the normal range. There was no evidence for tricuspid stenosis. There was no regurgitation. Right atrium: Size was normal. Systemic veins: IVC: Normal IV cava so Ra pressure would be 0-5 mm Hg Pericardium: There was no pericardial effusion. The pericardium was normal in appearance. System measurement tables 2D Ao Diam: 2.9 cm LVOT Diam: 2 cm LA Diam: 3.5 cm LAEDV Index (A-L): 22 ml/m2 LAEDV(A-L): 39.5 ml IVSd: 0.8 cm IVSs: 1.1 cm LVIDd: 5 cm LVIDs: 3.1 cm LVPWd: 0.8 cm LVPWs: 1.2 cm CW AV VTI: 35.3 cm AV Vmax: 1.5 m/s AV Vmean: 1 m/s AV maxP.1 mmHg AV meanP.6 mmHg PV Vmax: 1.1 m/s PV maxP.8 mmHg MM TAPSE: 2.1 cm PW MINDI (VTI): 2.4 cm2 MINDI Vmax: 2.4 cm2 LVOT VTI: 27.3 cm LVOT Vmax: 1.1 m/s LVOT Vmean: 0.7 m/s LVOT maxP.2 mmHg LVOT meanP.5 mmHg MV E/A Ratio: 1.7 Prepared and signed by Mc Deal MD, [facility] Signed 08-Oct-2014 18:20:44 Gerald Espitia MD ECHO ORDERABLES Performing Organization Address City/State/[facility] Co de Phone Number [facility] [address] [place] [address] * XR ELBOW 3+ VW RIGHT (10/07/2014 4:02 PM CDT) Anatomical Region Laterality Modality Upper Extremity Radiographic Lizbeth ging 10/07/2014 4:07 PM CDT Narrative 10/07/2014 4:07 PM CDT Right elbow, 3 view History: Heroin abuse and abscess There is air and soft tissue irregularity along the dorsum of the mid forearm. The osseous structures specifically the elbow appear grossly normal. Procedure Note Warren Palomino MD - 10/07/2014 Right elbow, 3 view History: Heroin abuse and abscess There is air and soft tissue irregularity along the dorsum of the mid forearm. The osseous structures specifically the elbow appear grossly normal. Preet Garnica MD DIAGNOSTIC IMAGING O RDERABLES * (ABNORMAL) CULTURE WOUND+GRAM STAIN (10/07/2014 3:12 PM CDT) Culture Heavy growth Staphylococcus aureus(A) CECILIA 10/09/2014 12:02 PM CDT [facility] Gram Stain Heavy White blood cells 10/09/2014 12:02 PM CDT [facility] Gram Stain Light Gram positive cocci 10/09/2014 12:02 PM CDT [facility] Microbiology SPECIMEN FROM ABSCESS / Unknown Collection / Unknown 10/07/2014 3:12 PM CDT 10/07/2014 3:16 PM CDT Narrative Organism Antibiotic Method Susceptibility Staphylococcus aureus Ciprofloxacin CECILIA <=0.5 ug/mL: Susceptible Staphylococcus aureus Clindamycin CECILIA 0.25 ug/mL: Susceptible Staphylococcus aureus Doxycycline CECILIA <=0.5 ug/mL: Susceptible Staphylococcus aureus Erythromycin CECILIA >=8 ug/mL: Resistant Staphylococcus aureus Gentamicin CECILIA <=0.5 ug/mL: Susceptible Staphylococcus aureus Inducible Clindamy lamont Resistance CECILIA NEG ug/mL: - Staphylococcus aureus Levofloxacin CECILIA 0.25 ug/mL: Susceptible Staphylococcus aureus Linezolid CECILIA 2 ug/mL: Susceptible Staphylococcus aureus Oxacillin CECILIA 0.5 ug/mL: Susceptible Staphylococcus aureus Tetracycline CECILIA <=1 ug/mL: Susceptible Staphylococcus aureus Trimethoprim-sulfa methoxa zole CECILIA <=10 ug/mL: Susceptible Staphylococcus aureus Vancomycin CECILIA <=0.5 ug/mL: Susceptible Comment:Methicillin suscepti ble Staphylococci are susceptible to oxacillin, nafcillin, cloxacillin,diclozacillin, flucloxacillin, beta lactam/betalactamase inhibitor combinations, cephalosporins including cefazolin and carbapenems. Juan M Irizarry MD LAB - MICROBIOLOGY O RDERABLES [facility] [address] [place] [address], [facility] [phone] * CULTURE ANAEROBE (10/07/2014 3:12 PM CDT) Culture No anaerobic organisms isolated CECILIA 10/14/2014 11:02 AM CDT [facility] Microbiology SPECIMEN FROM ABSCESS / Unknown Collection / Unknown 10/07/2014 3:12 PM CDT 10/07/2014 3:16 PM CDT Juan M Irizarry MD LAB - MICROBIOLOGY O RDERABLES [facility] [address] [place] [address], [facility] [phone] * (ABNORMAL) URINALYSIS ROUTINE W/REFLEX TO CULTURE (10/07/2014 12:33 PM CDT) Only the most recent of2 resultswithin the time period is included. Color UA Yellow Straw, Yellow, Dark Yellow 10/07/2014 12:57 PM CDT [facility] Clarity UA Clear 10/07/2014 12:57 PM CDT [facility] Specific [place] UA 1.021 1.005 - 1.030 10/07/2014 12:57 PM CDT [facility] pH UA 6.0 5.0 - 8.0 pH 10/07/2014 12:57 PM CDT [facility] Protein UA Negative Negative 10/07/2014 12:57 PM CDT [facility] Blood UA Negative Negative 10/07/2014 12:57 PM CDT [facility] Leukocyte UA 1+(A) Negative 10/07/2014 12:57 PM CDT [facility] Nitrite UA Positive(A) Negative 10/07/2014 12:57 PM CDT [facility] Glucose UA 2+(A) Negative 10/07/2014 12:57 PM CDT [facility] Ketone UA Negative Negative 10/07/2014 12:57 PM CDT [facility] Bilirubin UA Negative Negative 10/07/2014 12:57 PM CDT [facility] Urobilinogen UA 1.0 0.1 - 1.0 EU/dL 10/07/2014 12:57 PM CDT [facility] WBC UA Auto 20-50(A) 0-2, 2-5 # /hpf 10/07/2014 12:57 PM CDT [facility] RBC UA Auto 0-2 0-2, 2-5 # /hpf 10/07/2014 12:57 PM CDT [facility] Epithelial Cell UA Auto 2-5 0-2, 2-5 # /hpf 10/07/2014 12:57 PM CDT [facility] Reflex Status Culture to follow 10/07/2014 12:57 PM CDT [facility] Urine URINE SPECIMEN OBTAINED BY CLEAN CATCH PROCEDURE / Unknown Collection / Unknown 10/07/2014 12:33 PM CDT 10/07/2014 12:40 PM CDT Gerald Espitia MD LAB - URINALYSIS ORD ERABLES Performing Organization Address City/[facility]/ZIP Co de Phone Number [facility] [address] [place] [address] * CULTURE URINE (10/07/2014 12:33 PM CDT) Only the most recent of2 resultswithin the time period is included. Culture No Growth (<1,000 CFU/mL) CECILIA 10/09/2014 7:35 AM CDT [facility] Urine URINE SPECIMEN OBTAINED BY CLEAN CATCH PROCEDURE / Unknown Collection / Unknown 10/07/2014 12:33 PM CDT 10/07/2014 12:40 PM CDT Gerald Espitia MD LAB - MICROBIOLOGY O RDERABLES Performing Organization Address City/[facility] Co de Phone Number [facility] [address] [place] [address], [facility] [phone] * CULTURE MRSA (10/07/2014 10:51 AM CDT) Culture Negative for MRSA CECILIA 10/08/2014 8:01 PM CDT [facility] Microbiology SPECIMEN FROM NASAL FOSSAE / Unknown Collection / Unknown 10/07/2014 10:51 AM CDT 10/07/2014 11:41 AM CDT Carissa Joshi MD LAB - MICROBIOLOGY O RDERABLES Performing Organization Address City/[facility]/ZIP Co de Phone Number [facility] [address] [place] [id number] [place] [address] * MAGNESIUM BLOOD (10/07/2014 4:39 AM CDT) Magnesium 2.4 1.6 - 2.6 mg/dL 10/07/2014 5:38 AM CDT [facility] Blood BLOOD SPECIMEN / Unknown Venipuncture / Unknown 10/07/2014 4:39 AM CDT 10/07/2014 5:21 AM CDT Carissa Joshi MD LAB - CHEMISTRY ODALYS SEGOVIA [facility] Organization Address City/State/ZIP Co de Phone Number [facility] [address] [place] [address] * (ABNORMAL) BASIC METABOLIC PANEL (CALCIUM TOTAL) (10/07/2014 4:38 AM CDT) Glucose 109(H) 74 - 106 mg/dL 10/07/2014 5:38 AM CDT [facility] Sodium 137 136 - 145 mmol/L 10/07/2014 5:38 AM CDT [facility] Potassium 3.7 3.5 - 5.1 mmol/L 10/07/2014 5:38 AM CDT [facility] Chloride 105 98 - 107 mmol/L 10/07/2014 5:38 AM CDT [facility] CO2 26 22 - 31 mmol/L 10/07/2014 5:38 AM CDT [facility] Calcium 8.4(L) 8.5 - 10.1 mg/dL 10/07/2014 5:38 AM T [facility] Anion Gap 6 5 - 20 mmol/L 10/07/2014 5:38 AM CDT [facility] BUN 9 7 - 21 mg/dL 10/07/2014 5:38 AM CDT [facility] Creatinine 0.73 0.50 - 1.30 mg/dL 10/07/2014 5:38 AM CDT [facility] eGFR by MDRD >60 >60 mL/min/1.7 3m2 10/07/2014 5:38 AM CDT [facility] eGFR by MDRD >60 >60 mL/min/1.7 3m2 10/07/2014 5:38 AM CDT [facility] Blood BLOOD SPECIMEN / Unknown Venipuncture / Unknown 10/07/2014 4:38 AM CDT 10/07/2014 5:21 AM CDT Carissa Joshi MD LAB - CHEMISTRY ODALYS SEGOVIA [facility] Organization Address City/State/ZIP Co de Phone Number [facility] [address] [place] [address] * CT UPPER EXTREMITY W WO CONTRAST RIGHT [phone] (10/06/2014 5:25 PM CDT) Anatomical Region Laterality Modality Upper Extremity Computed Tomogra phy 10/06/2014 6:36 PM CDT Impressions 10/06/2014 7:01 PM CDT proximal forearm abscess posteromedial forearm with associated cellulitis. Additional images to reference include image 9 series 13 with a bilobed fluid collection is also seen measuring about 3 cm in craniocaudad dimensions. It should be noted that only a venous enhancement occurs on the study. Mostly only venous enhancement occurs on the study. Arterial enhancement very limited due to the time of acquisition I believe. Report printed to the Emergency Department at 6:41 p.m. on 10/06/2014. Narrative 10/06/2014 7:[address] SCAN OF THE RIGHT EXTREMITY WITH AND WITHOUT CONTRAST: (10/06/2014) HISTORY: Known heroin user, redness and swelling to the elbow between the Y-spots, fever. Patient used right antecubital to inject into 4 days ago. 100 mL Omnipaque-300 IV contrast. No plain films are available for comparison. Extensive cellulitis both above and below the elbow extending into the forearm. No underlying osteomyelitis or bone destruction can be seen. The postcontrast images show a developing abscess fluid collection on image 73 series 4 measuring about 16 x 16 mm. It is posteromedial along the proximal ulna. It does appear to involve the underlying muscular layer/fascia as well as the subcutaneous tissues (see image 71 series 4 through image 80 series 4). Procedure Note Kal Barreto MD - 10/06/2014 CT SCAN OF THE RIGHT EXTREMITY WITH AND WITHOUT CONTRAST: (10/06/2014) HISTORY: Known heroin user, redness and swelling to the elbow between the Y-spots, fever. Patient used right antecubital to inject into 4 days ago. 100 mL Omnipaque-300 IV contrast. No plain films are available for comparison. Extensive cellulitis both above and below the elbow extending into the forearm. No underlying osteomyelitis or bone destruction can be seen. The postcontrast images show a developing abscess fluid collection on image 73 series 4 measuring about 16 x 16 mm. It is posteromedial along the proximal ulna. It does appear to involve the underlying muscular layer/fascia as well as the subcutaneous tissues (see image 71 series 4 through image 80 series 4). IMPRESSION proximal forearm abscess posteromedial forearm with associated cellulitis. Additional images to reference include image 9 series 13 with a bilobed fluid collection is also seen measuring about 3 cm in craniocaudad dimensions. It should be noted that only a venous enhancement occurs on the study. Mostly only venous enhancement occurs on the study. Arterial enhancement very limited due to the time of acquisition I believe. Report printed to the Emergency Department at 6:41 p.m. on 10/06/2014. Myranda Cotto MD CT ORDERABLES * EKG 12-LEAD (10/06/2014 3:46 PM CDT) Pathologist [facility] Ventricular Rate 101 BPM [facility] MUSE Atrial Rate 101 BPM [facility] MUSE P-R Interval 132 ms [facility] MUSE QRS Duration ms 126 ms [facility] M[facility] Q-T Interval ms 368 ms [facility] MUSE QTC Calculation (Bezet) 477 ms [facility] MUSE Calculated P [place] 18 degrees [facility] MUSE Calculated R [place] 56 degrees [facility] MUSE Calculated T [place] 37 degrees [facility] MUSE Interpretation EKG SINUS TACHYCARDIA RIGHT BUNDLE BRANCH BLOCK ABNORMAL ECG WHEN COMPARED WITH ECG OF 04-JUL-2011 15:29, VENT. RATE HAS INCREASED BY 38 BPM Confirmed by COTY ZAMUDIO MD ([id number]) on 10/07/2014 6:38:28 AM [facility] MUSE 10/06/2014 3:46 PM CDT 10/07/2014 6:38 AM CDT Myranda Cotto MD ECG ORDERABLES [facility] MUSE * HCG BLOOD QUALITATIVE (10/06/2014 3:44 PM CDT) Pathologist [facility] HCG Qual Serum Negative Negative 10/06/2014 4:47 PM CDT [facility] Blood BLOOD SPECIMEN / Unknown Lab Venipuncture / Unknown 10/06/2014 3:44 PM CDT 10/06/2014 4:42 PM CDT Myranda Cotto MD LAB - CHEMISTRY OR DERABLES [facility] [address] * XR CERVICAL SPINE MIN 4+ VW (01/05/2014 4:01 PM CDT) Anatomical Region Laterality Modality Spine Radiographic Lizbeth ging 01/05/2014 4:54 PM CDT Impressions 01/05/2014 9:13 PM CDT Subtle reduction in disc space height C5-C6. Preliminary report printed to ER 01/05/2014 Narrative 01/05/2014 9:13 PM CDT CERVICAL SPINE 5 VIEWS 01/05/2014 Clinical history: Torticollis FINDINGS: Five-view cervical spine demonstrate slight reduction in height C5-C6. No fracture seen. Slight reversal of normal lordotic curvature. Procedure Note Kal Barreto MD - 01/05/2014 CERVICAL SPINE 5 VIEWS 01/05/2014 Clinical history: Torticollis FINDINGS: Five-view cervical spine demonstrate slight reduction in height C5-C6. No fracture seen. Slight reversal of normal lordotic curvature. IMPRESSION Subtle reduction in disc space height C5-C6. Preliminary report printed to ER 01/05/2014 Myranda Cotto MD DIAGNOSTIC IMAGING ORDERABLES * HCG URINE QUALITATIVE - POINT OF CARE (IP) (07/23/2013 11:39 AM CDT) HCG Qual Urine Negative Negative [facility] POCT TESTING QC Verified Yes Yes [facility] POC T TESTING Urine specimen (specimen) URINE / Unknown 07/23/2013 11:39 AM CDT [facility] - POINT OF CARE ORDERABLES [facility] POCT TESTING [address] [place] [address] * (ABNORMAL) URINALYSIS MICROSCOPIC ONLY W/REFLEX CULTURE (07/23/2013 11:35 AM CDT) RBC UA 2-5 0-2, 2-5 # /hpf 07/23/2013 12:14 PM CDT [facility] WBC UA 10-20(A) 0-2, 2-5 # /hpf 07/23/2013 12:14 PM CDT [facility] Bacteria UA 4+(A) None Seen 07/23/2013 12:14 PM CDT [facility] Epithelial Cell UA 0-2 0-2, 2-5 07/23/2013 12:14 PM CDT [facility] Mucus UA 2+ 07/23/2013 12:14 PM CDT [facility] Triple Phosphate Crystals 2+(A) None Seen 07/23/2013 12:14 PM CDT [facility] Urine URINE SPECIMEN OBTAINED BY CLEAN CATCH PROCEDURE / Unknown 07/23/2013 11:35 AM CDT 07/23/2013 11:46 AM CDT [facility] - URINALYSIS ORD ERABLES [facility] [address] [place] [address] Care Teams Program Director/Morning Show Host Relationship Specialty Start Date End Date Taty Calderon SLUBBER TENDER-MANAGER [employer] PCP - General Nurse Practitioner 05/25/13 Carmelina Nguyễn APRN-MANAGER [employer] [address] [place] [phone] PCP - Attributed-BCBS Medicaid [place] 12/06/19
--- OUTSIDE RECORDS SUMMARY | 2024-05-11 20:16 | XMS_ITS | Referral Summary ---
Author Organization [facility] Address [address] [place] [address] Care Team Providers Care Soup Mixer Name Role Phone No, Physician Primary Care Provider [phone] Allergies Active Allergy Reactions Criticality Noted Date [...] on file Legal Sex Female 7:57 AM PERMASTONE APPLICATOR Gender Identity Not on file Sexual Orientation [...] 11/09/2023 2:58 PM CDT Plan of Treatment Not on file Procedures Procedure Name Priority Date/Time Associated Diagnosis Comments SERUM HEPATITIS PANEL Routine 03/30/2016 6:13 AM PERMASTONE APPLICATOR from Last 3 Months or Most Recently Relevant to Health Maintenance Results * (ABNORMAL) Serum Hepatitis panel (03/30/2016 6:13 AM PERMASTONE APPLICATOR) HAV ab, IgM Negative Negative CDR HIST ORICAL RESULTS HBV core ab, IgM Negative Negative CDR HISTORICAL RESULTS HCV ab Positive(A) Negative CDR HIST ORICAL RESULTS Comment:Critical result call ed to and read back byM (MICHELLE GUSTAFSON) on 03/30/2016 07:46:15 CST_ to DD_.Initial Positive result should be confirmed by PCR testing. HBV surface ag Negative Negative CDR HISTORICAL RESULTS Serum 03/30/2016 6:13 AM PERMASTONE APPLICATOR us Historical Provider LAB BLOOD ORDERABLES Nancy lauren Result CDR HISTORICAL RESULTS from Last 3 Months or Most Recently Relevant to Health Maintenance Insurance SHREYA FANG [id number] [facility] Care Teams Soup Mixer Relationship Specialty Start Date End Date No, Physician PCP - General 12/19/19
--- OUTSIDE RECORDS SUMMARY | 2024-05-11 20:16 | XMS_ITS | Clinical Summary ---
Author Organization [facility] Address [address] [place] [address] Care Team Providers Care Garage Mechanic Name Role Phone Taty Calderon DIRECTOR OF PROVIDER RELATIONS-ELECTRIC STOP INSTALLER Primary Care Provider Carmelina Nguyễn DIRECTOR OF PROVIDER RELATIONS-ELECTRIC STOP INSTALLER Unavailable [phone] Source Comments [facility] [employer],non-owned Affiliates and Associated Physician Practices is amultiple site organization consisting of ambulatory clinics and hospital sitesin [place], [place] and [place]. This disclosure is being madepursuant to the Care Everywhere program and may not contain all information available regarding this patient. Last updated 17.[facility] Allergies Active Allergy Reactions Criticality Noted Date [...] teach patient to pack wound. F/u at [facility]. Assessment & Plan (10/07/2014 4:15 AM CDT): [...] sirs (tachy and febrile on presentation at [place] -h/o IV drug abuse with suspected source [...] Plan -monitor for withdrawal symptoms -HIV panel Family History Relation Name Status Comments Father Alive Mother Alive Social History Tobacco Use Types Packs/Day Years [...] Mass Index 34.45 06/07/2018 1:10 PM CDT Plan of Treatment Health Maintenance Due Date Last Done Comments DTAP/TDAP/TD VACCINES (1 - Tdap) 08/31/2007 HEPATITIS B VACCINE (1 of 3 - 19+ 3-dose series) 08/31/2007 PAP SMEAR 06/06/2021 06/06/2018 COVID-19 VACCINE ( - 2023-2 5 season) 2023 INFLUENZA VACCINE (#1) 2023 DEPRESSION SCREENING 03/07/2024 ZOSTER VACCINE (1 of 2) 2038 HEPATITIS C SCREENING Completed 10/08/2014 , 10/07/2014 HIV SCREENING Completed 10/08/2014 HIB VACCINE Aged Out No longer eligi ble based on patient's age to complete this topic HPV VACCINE Aged Out No longer eligi ble based on patient's age to complete this topic MENINGOCOCCAL (Group B) VACCINE Aged Out No longer eligible b ased on patient's age to complete this topic MENINGOCOCCAL VACCINE Aged Out No dillon lorie eligible based on patient's age to complete this topic PNEUMOCOCCAL VACCINE Aged Out No long er eligible based on patient's age to complete [...] Z30.09 Z12.4 Z11.51 Z72.51 Z30.011 Performed by [facility] INSURANCE BILL Comment:Rito Portillo, [facility] otechnologist (ASCP) Comment . [facility] INSURANCE [...] 3:11 PM CDT Source.............Cervix LMP / Prev Treat...OXH=[id number] No. of containers..01 ThinPrep Vial Resulting Agency Comment [facility] [address] Roxie OMER [id number] Hortensia Zamarripa APRN-ELECTRIC STOP INSTALLER LAB - PATHOLOGY/CYTO LOGY ORDERABLES [facility] INSURANCE BILL [address] [place] [address] * HIV-1 HIV-2 ANTIBODY + HIV P24 AG PANEL (10/08/2014 11:47 AM CDT) [facility] HIV1/2 Ab + P24 Ag Non Reactive Non Reactive 10/08/2014 4:38 PM CDT [facility] Blood BLOOD SPECIMEN / Unknown Lab Venipuncture / Unknown 10/08/2014 11:47 AM CDT 10/08/2014 11:51 AM CDT Narrative [facility] - 10/08/2014 4:38 PM CDT No Laboratory evidence of HIV infection. Carissa Jsohi MD LAB - CHEMISTRY ODALYS SEGOVIA [facility] [place] [address] * HEPATITIS C RNA QUANTITATIVE PCR (10/08/2014 11:47 AM CDT) [facility] Hepatitis C Virus RNA Quantitative <15 IU/mL 10/10/2014 11:29 AM CDT [facility] ([facility]) Hepatitis C Virus RNA Log Quantitative <1.2 log IU 10/10/2014 11:29 AM CDT [facility] ([facility]) Comment: INTERPRETIVE INFORMATION: Hepatitis C Virus by [...] Not Detected Not Detected 10/10/2014 11:29 AM CDT [facility] ([facility]) EER HCV See Note 10/10/2014 11:29 AM CDT [facility] ([facility]) Comment: To download an enhanced report for this test go to: [email or web address] [email or web address] [email or web address] Blood specimen (specimen) BLOOD SPECIMEN / Unknown Lab Venipuncture / Unknown 10/08/2014 11:47 AM CDT 10/08/2014 11:51 AM CDT Carissa Joshi MD LAB - CHEMISTRY ODALYS [facility] Organization Address City/State/ZIP Co de Phone Number [facility] ([facility]) [address] [place] [address], [facility] from Last 3 Months or Most Recently Relevant to Health Maintenance Advance Directives * Full Code (Latest Code Status on File) Date Activated Date Inactivated Comments 10/07/2014 1:59 AM 10/11/2014 4:58 PM Care Teams Garage Mechanic Relationship Specialty Start Date End Date Taty Calderon APRN-MICHAEL PCP - General Nurse Practitioner 05/25/13 Carmelina Nguyễn APRN-MICHAEL [address] [place] [phone] PCP - Attributed-[employer] Medicaid [place] 12/06/19
[2024-05-11 20:57] LABS: Trichomonas Vag PCR NOT DETECTED (NOT DETECTE)
[2024-05-11 21:22] LABS: Chlamydia trachomatis NOT DETECTED (NOT DETECTE); Neisseria gonorrhoeae PCR NOT DETECTED (NOT DETECTE)
[2024-05-16 15:47] LABS: Source NOT GIVEN
== END 2024-05-11 20:57 | disposition home or self-care (01) ==
LOC: ANHED 20:13
PROVIDERS: Emergency Provider Registered Nurse; PCP Family Medicine
DX: A60.00 Herpesviral infection of urogenital system, unspecified (principal); A63.0 Anogenital (venereal) warts
CPT/HCPCS: 81001; 81025; 87140; 87255; 87491; 87591; 87661; 96372; 99284; A9270; J0696

== ENCOUNTER 2024-08-21 17:04 | Emergency (ER) | payer BC, SELFPAY ==
--- OUTSIDE RECORDS SUMMARY | 2024-08-21 17:06 | XMS_ITS | Patient Health Record ---
Author Organization [facility] Address [address] [place] [address] Care Team Providers Care Greek Professor Name Role Phone Ángel Pham Primary Care Provider [phone] Leonora Rondon Unavailable [phone] Asuncion Holm Unavailable [phone] Allergies Allergen (clinical drug ingredient) Drug/Non Drug Allergy documented on EMR Reaction Allergy Type Onset Date Status Motrin hives Drug Allergy Active Results Component Value Reference Range Notes 12 Panel Urine Drug Screen Reviewed date:10/14/2023 01:13:24 PM Interpretation: Performing Lab: Notes/Report: THC POS JOI neg MOP (OPI) neg AMP POS MET POS BAR neg BZO neg MDMA POS MTD neg OXY neg PCP neg BUP POS 12 Panel Urine Drug Screen Reviewed date:10/31/2023 02:10:35 PM Interpretation: Performing Lab: Notes/Report: THC neg JOI neg MOP (OPI) neg AMP POS MET POS BAR neg BZO neg MDMA neg MTD neg OXY neg PCP neg BUP POS Medication Assisted Treatmen t (MAT) Buprenorphine, Norbuprenorphine, and Naloxone MS Confirmation, Urine Reviewed date:11/08/2023 08:14:32 AM Interpretation: Performing Lab:[facility], [address] [facility], Phone - [phone], Director - Triny Notes/Report: Creatinine 96 Testing Threshold: buprenorphine, 1.0 ng/mL norbuprenorphine, 5.0 ng/mL naloxone, 10 ng/mL This test was developed and its performance characteristics determined by [facility]. It has not been cleared or approved by the Food and Drug Administration. REFERENCE RANGE: Ref Range>=20 BUPRENORPHINE ++POSITIVE++ Buprenorphine 285 Norbuprenorphine 722 N/B Ratio 2.53 >=0.3 OPIATE ANTAGONIST ++POSITIVE++ Naloxone 1039 12 Panel Urine Drug Screen Reviewed date:10/04/2023 03:02:23 PM Interpretation: Performing Lab: Notes/Report: THC neg JOI neg MOP (OPI) neg AMP POS MET POS BAR neg BZO POS MDMA POS MTD neg OXY neg PCP neg BUP POS 12 Panel Urine Drug Screen Reviewed date:02/06/2024 01:50:49 PM Interpretation: Performing Lab: Notes/Report: THC POS JOI neg MOP (OPI) neg AMP POS MET POS BAR neg BZO neg MDMA neg MTD neg OXY neg PCP neg BUP POS Comprehensive Drug Analysis, Urine Reviewed date:11/29/2023 09:58:37 AM Interpretation: Performing Lab:[facility], [address] [place] [address], Phone - [phone], Director - Triny Notes/Report: ToxAssure, T[facility]Assure FLEX or MAT drug testing: Technical Component - Data Analysis performed at [facility], [address] [place] [address], [phone] . Felt Checker Sofia Khan MD Summary Report (Summary) FINAL [...] test is not intended to distinguish between xzoyn-5-ipdfphtbxkdvhdrbchtp, the predominant form of THC in most herbal or marijuana-based products, and mwucd-1-benddahlersreynbhpyu. Buprenorphine >463 ng/mg creat Norbuprenorphine >463 ng/mg creat Source of buprenorphine is a scheduled prescription medication. Norbuprenorphine is an expected metabolite of buprenorphine. Ephedrine/Pseudoephedrine PRESENT Phenylpropanolamine PRESENT Source of ephedrine/pseudoephedrine is most commonly pseudoephedrine in ieue-mob-oghexwx or prescription cold and allergy medications. Phenylpropanolamine is an expected metabolite of ephedrine/pseudoephedrine. Test Result Flag Units Ref Range Creatinine 216 mg/dL >=20 For clinical consultation, please call . PDF . 12 Panel Urine Drug Screen Reviewed date:12/14/2023 11:05:27 AM Interpretation: Performing Lab: Notes/Report: THC neg JOI neg MOP (OPI) neg AMP POS MET POS BAR neg BZO POS MDMA POS MTD neg OXY neg PCP POS 12 Panel Urine Drug Screen Reviewed date:03/05/2024 02:36:24 PM Interpretation: Performing Lab: Notes/Report: THC POS JOI neg MOP (OPI) POS AMP POS MET POS BAR neg BZO POS MDMA POS MTD neg OXY neg PCP neg BUP POS 12 Panel Urine Drug Screen Reviewed date:11/21/2023 03:04:53 PM Interpretation: Performing Lab: Notes/Report: THC POS JOI neg MOP (OPI) neg AMP POS MET POS BAR neg BZO POS MDMA POS MTD neg OXY neg PCP neg BUP POS 12 Panel Urine Drug Screen Reviewed date:09/20/2023 01:36:46 PM Interpretation: Performing Lab: Notes/Report: THC neg JOI neg MOP (OPI) neg AMP POS MET POS BAR neg BZO neg MDMA POS MTD neg OXY neg PCP neg BUP POS Test, Urine Reviewed date:09/20/2023 01:40:08 PM Interpretation:Negative Performing Lab: Notes/Report: Negative Test, Urine neg Negative - Negative PDF Report Reviewed date:11/29/2023 09:58:37 AM Interpretation: Performing Lab:[facility], [address] [place] [address], Phone - [phone], Director - Triny Notes/Report: ToxAssure, T[facility]ure FLEX or MAT drug testing: Technical Component - Data Analysis performed at [facility], [address] [place] [address], [phone] . Felt Checker Sofia Khan MD PDF Report1 [facility] Reason For Referral No Information Medications Medication [...] with others, in a hotel, in a senior care, living outside on the street, on a [...] phone, visiting friends or family, going to yazidi or club meetings) More than 5 times a week How stressed are you? Stress is when someone feels tense, nervous, anxious, or can\t sleep at night because their mind is troubled Somewhat In the past year have you sp ent more than 2 nights in a row in a penitentiary, jail, prison center, or juvenile correctional facility? Yes What [...] W/U Status Risk Notes Problem Tobacco user (904923095) Nicotine dependence, unspecified, uncomplicated (F17.200) Active confirmed Problem Obesity (BMI 30-39.9) (E66.9) Active confirmed Problem Opioid use disorder (9561800834) Opioid use disorder (F11.99) Active confirmed Vital Signs Heart Rate 126 /min 03/05/2024 Temperature 98.6 degrees Fahrenheit 03/05/2024 Respiratory Rate 16 /min 03/05/2024 Oximetry 98 % 03/05/2024 Blood pressure diastolic 78 mm Hg 03/05/2024 Height 65 in 03/05/2024 Blood pressure systolic 126 mm Hg 03/05/2024 Weight 208.2 lbs 03/05/2024 BMI 34.64 kg/m2 03/05/2024 Encounters Encounter Location Date Provider Diagnosis [address] [address] 09/20/2023 Leonora Sanbravoann [address] [address] [facility] [address] [address] [facility] [address] 10/31/[address] [address] 09/20/2023 Asuncion Szlufik Opioid use disorder F11.99 ; Exposure to potential infection Z20.9 ; Obesity (BMI 30-39.9) E66.9 ; Nutritional counseling Z71.3 and Nicotine dependence, unspecified, uncomplicated F17.[address] [address] 10/04/2023 Asuncion Szlufik Opioid use disorder F11.99 ; Nicotine dependence, unspecified, uncomplicated F17.200 ; Obesity (BMI 30-39.9) E66.9 and Nutritional counseling Z71.[address] [address] 10/31/2023 Asuncion Szlufik Opioid use disorder F11.99 ; Obesity (BMI 30-39.9) E66.9 ; Nicotine dependence, unspecified, uncomplicated F17.200 and Nutritional counseling Z71.[address] [place] [address] 10/14/2023 Ángel Pham Opioid use disorder F11.99 ; Obesity (BMI 30-39.9) E66.9 ; Nutritional counseling Z71.3 and Nicotine dependence, unspecified, uncomplicated F17.[address] [address] 11/21/2023 Asuncion Anooplufik Opioid use disorder F11.99 ; Obesity (BMI 30-39.9) E66.9 and Nicotine dependence, unspecified, uncomplicated F17.[address] [address] 12/14/2023 Asuncion Szlufik Opioid use disorder F11.99 ; Obesity (BMI 30-39.9) E66.9 and Nicotine dependence, unspecified, uncomplicated F17.[address] [address] 02/06/2024 Asuncion Szlufik Opioid use disorder F11.99 ; Obesity (BMI 30-39.9) E66.9 and Nicotine dependence, unspecified, uncomplicated F17.[address] [address] 03/05/2024 Asuncion Szlufik Opioid use disorder F11.99 Assessments Encounter Date [...] Nicotine dependence, unspecified, uncomplicated (ICD-10 - F17.200) 03/05/2024 Other Discussed risks of illicit substances [...] services. Contact office with questions or concerns. 10/14/2023 Other Potential side effects of buprenorphine [...] part of a Medication Assisted Treatment program 11/21/2023 Other Client agrees to take medication [...] program. Contact office with questions or concerns. 09/20/2023 Other Client agrees t o take [...] and reduce barriers to health care services. 12/14/2023 Other Client agrees to take medication [...] medications. Contact office with questions or concerns. 10/04/2023 [...] program. Contact office with questions or concerns. 10/14/2023 Other Provided case management services to [...] and reduce barriers to health care services. 02/06/2024 Other Discussed risks of illicit methamphetamine [...] Insured Coverage Start Date Coverage End Date [place] [id number] [facility] [address] [place] [address] [id number] 1 Trupti Frank Self - patient is the insured 2 Medical (General) History Medical History History ICD Code OUD Surgical History Surgery Date(Month/Year) right hand fasciotomy s/t compartment sy ndrome 2022 Hospitalization History Reason Date(Month/Year) childbirth x3
--- OUTSIDE RECORDS SUMMARY | 2024-08-21 17:06 | XMS_ITS ---
Author Organization [facility] Address [address] [place] [address] Care Team Providers Care Field Service Coordinator Name Role Phone Ángel Pham Primary Care Provider [phone] REASON FOR VISIT Est Primary Social History Sex Assigned At : Social History Observation Description Sex Assigned At Female Encounters Encounter Location Date Provider Diagnosis [address] [address] 02/10/2024 Ángel Pham Plan Of Treatment No Information Progress Notes * Peggy FRANKMarlysB:1990 ( 33 yo F)Acc No.[id number]:02/10/2024 UNLOCKED PROGRESS NOTE Progress Notes Patient: Trupti COPE Provider: GERALDO Shaikh, AGPCNP-BC :1990 A ge:33 Y S ex:Female Date:02/10/2024 Address:[address] [place], [place] [id number] Subjective: * Chief Complaints: * 1 . Est Primary. * Medical History: Objective: * Vitals: Assessment: Plan: * Treatment: * * Electronic signature of John Pham APRN, [phone] on 08/21/2024 at 05:06 PM CDT Sign off status: Pending * Provider: GERALDO Shaikh, AGPCNP-BC Date: 1 04/12/2023 Generated for Printing/Faxing/eTransmitting on: 0 08/21/2024 05:06 PM CDT
[2024-08-21 17:09] VITALS: BP 132/67; PULSE 124; RESP 16; TEMP 36.5; O2SAT 97
--- NOTE | 2024-08-21 17:36 | ED.GENADULT ---
HPI - General Adult General Chief complaint: Unspecified Stated complaint: sore throat Time Seen by Provider: 08/21/24 17:13 Source: patient Mode of arrival: ambulatory Limitations: no limitations History of Present Illness HPI narrative: This is a 33-year-old female that presents to the emergency department for sore throat. Ongoing since yesterday. Denies any other associated symptoms. Denies fevers, cough, congestion, rhinorrhea. Related Data Allergies Allergy/AdvReac Type Severity Reaction Status Date / Time ibuprofen Allergy Mild Hives Verified 05/11/24 16:54 Review of Systems Review of Systems: CONSTITUTIONAL: Denies fever ENT: Reports sore throat. Denies rhinorrhea, congestion or otalgia. RESPIRATORY: Denies cough All systems reviewed & are unremarkable except as noted in HPI and below PMFSH Social History Social History (Updated 08/21/24 @ 17:38 by Sofia Mina PA-C) Smoking status: Current every day smoker Exam Narrative: GENERAL: Well-appearing, well-nourished, and in no acute distress. HEAD: Normocephalic, atraumatic. EYES: EOMI. ENT: Nares clear, no rhinorrhea or epistaxis. Mucous membranes moist. Oropharynx with mild erythema, without tonsillar hypertrophy, exudate or other lesions. No trismus. Bilateral TMs pearly east non-bulging NECK: Supple. Tender anterior cervical adenopathy CHEST: Clear to auscultation. No respiratory distress. No wheezes rales or rhonchi HEART: Regular rate and rhythm. No murmur heard. Normal peripheral pulses. EXTREMITIES: Normal range of motion. No edema. SKIN: Warm, dry, no rash. NEURO: No focal deficits. Alert and oriented x3. PSYCH: Normal mood and affect Course Course Emergency Course: Patient updated on her workup and agrees with plan of care Vital Signs Vital signs: Vital Signs Temperature 97.7 F 08/21/24 17:09 Pulse Rate 124 H 08/21/24 17:09 Respiratory Rate 16 08/21/24 17:09 Blood Pressure 132/67 08/21/24 17:09 Pulse Oximetry 97 08/21/24 17:09 Oxygen Delivery Room Air 08/21/24 17:09 Temperature 98.9 F 08/21/24 18:16 Pulse Rate 110 H 08/21/24 18:16 Respiratory Rate 19 08/21/24 18:16 Blood Pressure 130/74 08/21/24 18:16 Pulse Oximetry 97 08/21/24 18:16 Oxygen Delivery Room Air 08/21/24 17:09 Medical Decision Making MDM Narrative Medical decision making narrative: Patient presents to the ER for sore throat. She is afebrile and nontoxic appearing. Patient tachycardic upon arrival, this improved with oral hydration. No evidence for [employer] on exam. Strep screen is positive. Will be started on oral antibiotics. She is to follow up with PCP. She was given warnings to return to the ER Differential Diagnosis Differential Diagnosis: strep pharyngitis, viral pharyngitis Vital Signs Vital Signs: Vital Signs Temperature 97.7 F 08/21/24 17:09 Pulse Rate 124 H 08/21/24 17:09 Respiratory Rate 16 08/21/24 17:09 Blood Pressure 132/67 08/21/24 17:09 Pulse Oximetry 97 08/21/24 17:09 Oxygen Delivery Room Air 08/21/24 17:09 Temperature 98.9 F 08/21/24 18:16 Pulse Rate 110 H 08/21/24 18:16 Respiratory Rate 19 08/21/24 18:16 Blood Pressure 130/74 08/21/24 18:16 Pulse Oximetry 97 08/21/24 18:16 Oxygen Delivery Room Air 08/21/24 17:09 Lab Data Lab results reviewed: Yes I reviewed the patient's lab results. Labs: Lab Results 08/21/24 Range/Units 17:17 Group A Strep (PCR) Detected A (Negative) Critical Care Time Critical Care Time Critical Care Time: No Discharge Plan Discharge Clinical Impression: Strep pharyngitis Patient Disposition: Home Condition: Stable Instructions: Antibiotic Form, Strep Throat (ED) Additional Instructions: Return to the emergency department for worsening symptoms, or any other concerns Remain well-hydrated, get plenty of rest. Take Tylenol for pain as needed. Take oral antibiotics as prescribed Follow up with primary care doctor Patient Language: Hebrew Prescriptions: New penicillin V potassium 500 mg tablet 500 mg PO Q12H 10 Days Qty: 20 0RF No Action doxycycline monohydrate 100 mg capsule 100 mg PO BID Qty: 14 0RF acyclovir 400 mg tablet 400 mg PO TID Qty: 30 0RF metronidazole 500 mg tablet 500 mg PO Q12H Qty: 14 0RF lidocaine 5 % cream 1 applic topical QID PRN (Reason: pain) Qty: 30 0RF phenazopyridine [Pyridium] 100 mg tablet 100 mg PO TID PRN (Reason: pain) Qty: 6 0RF Follow-up/Referrals: PHYSICIAN,[facility] [employer] [facility] [Primary Care Provider] - Evin Quinones MD [Physician] -
[2024-08-21 17:50] LABS: Strep Group A RT-PCR DETECTED (Negative)
[2024-08-21] MEDS: ACETAMINOPHEN 500 MG TABLET 1000 MG PO (17:55)
[2024-08-21 18:16] VITALS: BP 130/74; PULSE 110; RESP 19; TEMP 37.2; O2SAT 97
[2024-08-21] MEDS: PENICILLIN V POTASSIUM 250 MG TABLET 500 MG PO (18:20)
== END 2024-08-21 18:23 | disposition home or self-care (01) ==
PROVIDERS: Physician Assistant; Emergency Provider Physician Assistant
DX: J02.0 Streptococcal pharyngitis (principal); F17.200 Nicotine dependence, unspecified, uncomplicated
CPT/HCPCS: 87651; 99283; A9270